=== PATIENT | male | born 1930 | race Caucasian/White ===

== ENCOUNTER 2016-10-12 13:34 | Inpatient (IN) | payer OTHER, MEDICARE ==
[~2016-10-12] VITALS: Ht 167.6 cm; Wt 78.5 kg
--- NOTE | ~2016-10-12 | HC ---
[facility] [place] [address] CONSULTATION Name: NICKIE MESA Room #: 437-P ADM IN M.R.#: [id number] Admission: 10/12/16 Attend Phys: Yovani Fenton MD Discharge: Date of : 29 Report #: [id number] THIS REPORT FOR: //name// CC: Yovani Fenton DATE OF SERVICE: 10/13/2016 Nephrology Consultation REASON FOR CONSULTATION: Chronic kidney disease. HISTORY OF PRESENT ILLNESS: This is an 86-year-old male who is well known to our group. He is followed chronically in the office by Dr. Bahman Ceballos. When the patient was last in the hospital in June 2016, I saw him in consultation at that time. He has chronic kidney disease stage 4. He runs a baseline creatinine around 3 to 3.4. He has had problems with hypertension. He also has problems with edema and volume overload. At other times he has come in being a bit lightheaded and dizzy and may be a bit dry. Usually, he is on some diuretic in the form of torsemide 20 mg daily. He states that 2 days ago, he began getting very short of breath, this is rather acute in onset. It was accompanied by some orthopnea. No chest pain. He has some mild cough. He is unaware of fevers, chills or sweats. On presentation to the Emergency Room, he did have a right basilar infiltrate on chest x-ray. From a kidney standpoint, his creatinine level was 3.1, potassium was 5.6 yesterday, it is down to 5.1 today. PAST MEDICAL HISTORY: Chronic kidney disease stage 4. He has had a previous unilateral nephrectomy on the left side for renal cell carcinoma done in 2007. He has had chronically elevated creatinine since that time. He has longstanding hypertension, usually on multiple different medications. He has some chronic lower extremity edema and again normally he is maintained on the torsemide 20 mg daily. He has hypothyroidism and is on replacement. History of coronary artery disease with bypass graft surgery in 2006, type 2 diabetes mellitus, chronic tremor for which he takes propranolol, some chronic anemia. Previous problems with severe life-threatening hyperkalemia. MEDICATIONS: From home include amlodipine 2.5 mg daily, aspirin 325 mg daily, atorvastatin 20 mg daily, doxazosin 4 mg daily, levothyroxine 0.025 mg daily, ____, torsemide 20 mg daily. ALLERGIES: Listed to DILTIAZEM, BACTRIM. FAMILY HISTORY: Noncontributory. SOCIAL HISTORY: The patient is a , lives in [place], [place] at a local residential apartment. He tends to remain very active. [facility] [address] [place] [address] CONSULTATION Name: NICKEI MESA Room #: 437-P [facility] IN M.R.#: [id number] Admission: 10/12/16 Attend Phys: Yovani Fenton MD Discharge: Date of : 29 Report #: [id number] REVIEW OF SYSTEMS: Again, was feeling somewhat poorly the other day, began having the orthopnea. He was concerned as he felt somewhat weak that he was getting volume deplete again, he stopped his torsemide on his own, he does have some chronic lower extremity edema. He reports no fevers, chills or sweats. No palpitations. Appetite has been moderate. Denies nausea or vomiting, no diarrhea, no fevers, chills or sweats. PHYSICAL EXAMINATION: GENERAL: Elderly appearing male, sitting up in a chair. He is awake, alert and oriented. VITAL SIGNS: Blood pressure 176/56, heart rate 61, temperature 97.7, oxygen saturation 99%, respiratory rate 20. HEENT: Shows pupils are equal and reactive. Sclerae are nonicteric. Oral mucosa is moist. NECK: Veins are not ____, the neck is supple, no adenopathy. CHEST: Shows a few rales with dullness in right base. HEART: Has a regular rate and rhythm. ABDOMEN: Has active bowel sounds, soft, nontender. EXTREMITIES: He has 2+ bilateral ankle edema. Chest x-ray shows a right basilar infiltrate in right lower. LABORATORY DATA: From today, sodium 141, potassium 5.1, chloride 110, bicarbonate 14, BUN 85, creatinine 3.0, glucose 76, calcium 8.2. White count 9.4, hemoglobin 9.2, hematocrit 28.0, platelets 121,000. ASSESSMENT: 1. Chronic kidney disease stage 4: He is about baseline, volume is up a little bit. He needs to be back on his usual diuretics. I see no real change from a renal standpoint. 2. Moderate volume overload, we will get him back on daily torsemide, giving him a dose today and then resuming early tomorrow morning. 3. Right lower lobe infiltrate on broad spectrum antibiotics, currently afebrile, oxygenating fairly well. 4. Remote renal cell carcinoma with unilateral nephrectomy. 5. Coronary artery disease, no symptoms. PLAN: 1. He has been on some IV fluids, but we will stop that. 2. Resume torsemide 20 mg daily starting this afternoon, then resuming tomorrow morning. [facility] [address] [place] [address] CONSULTATION Name: NICKIE MESA Room #: 437-P ADM IN M.R.#: [id number] Admission: 10/12/16 Attend Phys: Yovani Fenton MD Discharge: Date of : 29 Report #: [id number] 3. Repeat labs in the morning. 4. We will follow along the care of this pleasant patient. <ELECTRONICALLY SIGNED> By: Carroll Parmar MD 10/14/16 0921 1454 1602 Carroll Parmar MD /nt
--- NOTE | ~2016-10-12 | 2DMMODE ---
[facility] [place] [address] 2 D/M-MODE ECHOCARDIOGRAM Name: NICKEI MESA Room #: 437-P [facility] IN M.R.#: [id number] Admission: 10/12/16 Attend Phys: Yovani Fenton, Discharge: Date of : 29 Date of Service: 10/16/16 0858 Report #: [id number] THIS REPORT FOR: //name// Transthoracic Echocardiography Ordering physician: Mendoza Ferrari Referring physician: Mendoza Ferrari Loose Hand Packer: JOSE GUADALUPE Jean Indications/History: CHF, DM, HTN. BP: 144 / HR: 60bpm Height: 65in Weight: 172.6lb 61 Study data: M-mode, complete 2D, complete spectral Doppler, and color Doppler. Location: Echo laboratory. Routine. Image quality was good. 2D measurements Normal Normal LVID ED 42mm 36-57 IVS ED 11.3mm 6-11 LVID ES 27.7mm 23-40 LVPW ED 11.7mm 6-11 LA volume 39ml/m2 16-28 AoRoot diam 33mm 21-37 index ED LVOT diameter 21mm 18-23 Findings: Left ventricle: The cavity size was normal. Wall thickness was at the upper limits of normal. Systolic function was normal. The estimated ejection fraction was in the range of 60% to 65%. Wall motion was normal. Right ventricle: The cavity size was normal. Systolic function was normal. Right atrium: The atrium was at the upper limits of normal in size. Left atrium: The atrium was dilated. Volume index: 39ml/m2 (S). Aortic valve: Trileaflet; mildly thickened, mildly calcified leaflets. Doppler: There was no stenosis. [address] [address] 2 D/M-MODE ECHOCARDIOGRAM Name: NICKIE MESA Room #: 437-P ADM IN M.R.#: [id number] Admission: 10/12/16 Attend Phys: Yovani Fenton, Discharge: Date of : 29 Date of Service: 10/16/16 0858 Report #: [id number] Mild regurgitation. Peak velocity: 157.6cm/s (S). Mitral valve: Mildly calcified annulus. Doppler: There was no evidence for stenosis. Mild regurgitation. Peak E-wave velocity: 72.2cm/s. Peak gradient: 2.1mm Hg (D). Peak A-wave velocity: 102cm/s. Tricuspid valve: Structurally normal valve. Doppler: There was no evidence for stenosis. Mild regurgitation. Regurgitant peak velocity: 282.3cm/s. Peak RV-RA gradient: 32mm Hg (S). Pulmonic valve: Structurally normal valve. Doppler: There was no evidence for stenosis. Mild regurgitation. Pericardium: There was no pericardial effusion. Aorta: Aortic root: The aortic root was normal in size. Pulmonary artery: Systolic pressure was estimated to be 37mm Hg. Diastolic function: Doppler parameters are consistent with abnormal left ventricular relaxation (grade 1 diastolic dysfunction). Systemic veins: Inferior vena cava: The vessel was normal in size; the respirophasic diameter changes were in the normal range (= 50%). Conclusions 1. Left ventricle: Systolic function was normal. The estimated ejection fraction was in the range of 60% to 65%. Wall motion was normal. Doppler parameters are consistent with abnormal left ventricular relaxation (grade 1 diastolic dysfunction). 2. Aortic valve: Trileaflet; mildly thickened, mildly calcified leaflets. There was no stenosis. Mild regurgitation. 3. Mitral valve: Mildly calcified annulus. Mild regurgitation. 4. Pulmonary arteries: Systolic pressure was estimated to be 37mm Hg. 5. Pericardium, extracardiac: There was no pericardial effusion. <ELECTRONICALLY SIGNED> By: Carl Tim MD, [facility] 10/16/16 1008 0858 1008 Carl Tim MD, [facility] /antonio
--- NOTE | ~2016-10-12 | EKG ---
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
--- NOTE | ~2016-10-12 | H ---
[facility] [place] [address] [place] [address] HISTORY AND PHYSICAL Name: NICKIE MESA Room #: 437-P ADM IN M.R.#: [id number] Admission: 10/12/16 Attend Phys: Yovani Fenton MD Discharge: Date of : 29 Report #: [id number] THIS REPORT FOR: //name// CC: Yovani Fenton DATE OF SERVICE: 10/12/2016 CHIEF COMPLAINT: Shortness of air. HISTORY OF PRESENT ILLNESS: The patient is an 86-year-old male, who is reportedly more short of air. I saw him in the office yesterday. He was having little bit of shortness of air. They thought he was hydrated. He presented to the ER, feeling worse, unable to lay flat. He denies any cough or fever. PAST MEDICAL HISTORY: Significant for, 1. Chronic kidney disease, last creatinine yesterday was 2.99. 2. Hypertension. 3. Coronary artery disease. 4. Hiatal hernia. 5. Non-insulin dependent diabetes mellitus. PAST SURGICAL HISTORY: Include prior colon perforation, cholecystectomy, exploratory laparotomy, hernia repair, and bypass grafting in 2006, left nephrectomy for cancer in 2007, sphincter of Oddi sphincterotomy, renal cancer. MEDICATIONS: Include aspirin 325 mg a day, amlodipine 2.5 mg a day, atorvastatin 20 mg a day, Synthroid 25 mcg a day, doxazosin 4 mg a day, magnesium 64 mg b.i.d., torsemide 20 mg a day, metoprolol XL 25 mg a day, propranolol 40 mg b.i.d., flaxseed daily, lactobacillus daily, metronidazole 500 mg t.i.d. recently. ALLERGIES: SULFA, CARDIZEM. SOCIAL HISTORY: Occasional alcohol. No recreational drugs. No tobacco. REVIEW OF SYSTEMS: CONSTITUTIONAL: Feels dizzy, weak, and lightheaded, not aware of any fevers. HEENT: No headaches or visual changes. CHEST: Shortness of air, little bit of cough, no sputum production. GASTROINTESTINAL: No nausea, vomiting, diarrhea, or constipation. GENITOURINARY: No burning or frequency. EXTREMITIES: No new joint pains. SKIN: No new rashes or wounds. PHYSICAL EXAMINATION: VITAL SIGNS: Blood pressure of 142/45, pulse of 62, respiratory rate 20. He is [address] [address] HISTORY AND PHYSICAL Name: NICKIE MESA MARILYN Room #: 437-[facility] IN M.R.#: [id number] Admission: 10/12/16 Attend Phys: Yovani Fenton MD Discharge: Date of : 29 Report #: [id number] afebrile. GENERAL: The patient is awake, alert, and in no acute distress. HEENT: His mucous membranes are moist. NECK: Supple, without adenopathy, thyromegaly, or bruits. CHEST: Clear to auscultation anteriorly, but there are decreased breath sounds in the bases. CARDIOVASCULAR: Regular rhythm without murmurs. ABDOMEN: Soft, no masses. Bowel sounds are active. EXTREMITIES: Showed no edema. Pulses are intact. DIAGNOSTIC DATA: EKG showed sinus rhythm at rate of 55. No ST segment changes. LABORATORY DATA: Sodium 135, potassium 5.6, chloride 106, BUN 84, creatinine 3.1. This is similar to his yesterday's numbers. Lactic acid is 0.7. Troponin is less than 0.04. BNP is 4703. WBC is 9.4, hemoglobin 9.2, hematocrit 28.0, platelet count 121, 73 segs, 10 lymphs. Chest x-ray shows early heart failure with some pulmonary edema versus a right lower lung infiltrate. ASSESSMENT: 1. Pneumonia, community acquired. 2. Acute kidney injury with chronic kidney disease. 3. Congestive heart failure. PLAN: We will admit, start on IV antibiotics for pneumonia. We will ask renal to see him in light of his prior chronic kidney disease, and ask cardiology to see him regarding the heart failure. <ELECTRONICALLY SIGNED> By: Yovani Fenton MD 10/15/16 1250 1524 1659 Yovani Fenton MD /nt
--- NOTE | ~2016-10-12 | HC ---
[facility] [place] [address] CONSULTATION Name: NICKIE MESA Room #: 437-P [facility] IN M.R.#: [id number] Admission: 10/12/16 Attend Phys: Yovani Fenton MD Discharge: 10/16/16 Date of : 29 Report #: [id number] THIS REPORT FOR: //name// CC: Yovani Fenton REASON FOR CONSULTATION: CHF. HISTORY OF PRESENT ILLNESS: The patient is an 86-year-old male with history of coronary artery disease status post CABG, chronic renal insufficiency, hypertension and diabetes who presents with increasing exertional dyspnea as well as PND or orthopnea. He denies any problems with chest pain or chest tightness. He was found to have some pulmonary edema on chest x-ray, was diuresed and is feeling better. PAST MEDICAL HISTORY: 1. Coronary artery disease, status post CABG. 2. Diabetes. 3. Hypertension. 4. Chronic renal insufficiency. 5. Renal cell carcinoma status post nephrectomy. 6. Carotid endarterectomy in 2009. SOCIAL HISTORY: Does not smoke. FAMILY HISTORY: Noncontributory. ALLERGIES: Include DILTIAZEM and SULFA. HOME MEDICATIONS: Include aspirin 325, amlodipine 2.5, atorvastatin 20 mg a day, Synthroid 25 mcg a day, doxazosin 5 mg a day, magnesium, torsemide 20 a day, metoprolol 25 mg a day, propranolol 40 b.i.d., flaxseed oil, lactobacillus, and metronidazole. REVIEW OF SYSTEMS: Twelve point review of systems was performed and negative other than what I mentioned above. PHYSICAL EXAMINATION: VITAL SIGNS: Temperature is 36.5, pulse 61, respirations 20, blood pressure 176/56, and sats are 99%. GENERAL: He is in no acute distress, sitting up in the chair. HEENT: Oropharynx is clear. NECK: Supple with no thyromegaly. HEART: Regular rate and rhythm with no murmurs, rubs, or gallops. He has slightly elevated jugular venous pressure. LUNGS: Some mild crackles at the bases. ABDOMEN: Soft, nontender, and nondistended with no hepatosplenomegaly. EXTREMITIES: There is no clubbing, cyanosis, or edema. [facility] [address] [place] [address] CONSULTATION Name: NICKIE MESA Room #: 437-P [facility] IN M.R.#: [id number] Admission: 10/12/16 Attend Phys: Yovani Fenton MD Discharge: 10/16/16 Date of : 29 Report #: [id number] NEUROLOGIC: Cranial nerves 2-12 are intact. LABORATORY DATA: Sodium is 141, potassium 5.1, and creatinine is 3.0. White count 9.4, hemoglobin 9.2, and platelets 121. Troponin was negative. ProBNP is 4703. His chest x-ray I compared it to prior and shows that he has increased cephalization, increased interstitial lung markings consistent with congestive heart failure. There are no recent echos in the computer. His EKG shows sinus rhythm with no ischemic changes. ASSESSMENT AND PLAN: In summary, the patient is an 86-year-old with known coronary artery disease status post coronary artery bypass graft, presenting with worsening shortness of breath, found to be in acute heart failure, most likely diastolic in nature. To further evaluate this, I would recommend that we order an echocardiogram on Saturday and we will continue to optimize his medications. We will continue to follow. <ELECTRONICALLY SIGNED> By: Mendoza Ferrari MD 10/19/16 1224 1449 1604 Mendoza Ferrari MD /nt
[2016-10-12 13:34] VITALS: BP 142/45
[~2016-10-12 13:34] MED LIST: AMBIEN 5 MG TABL5 M1 PO; AMBIEN CR12.5 MG PO; ASPIRIN325 PO; CARDURA8 MG PO; CEFDINIR300 MG PO; DEMADEX10 MG PO; DOXYCYCLINE; FLAX OIL1000 MG PO; FLOMAX PO; GILPIZIDE PO; LEVOTHYROXIN0.025 MG PO; LIPITOR 20 MG T20 M1 PO; NEXIUM40 MG PO; NORVASC2.5 MG PO; PLAVIX 75 MG TA75 MG OR; PROPRANOLOL 4040 M1 PO; PROPRANOLOL PO; REFRESH OPTIVE10 ML OPHTHALMIC; VYTORIN 10-401 EACH PO; VYTORIN PO
[2016-10-12 13:59] LABS: ABSOLUTE NEUTROPHILS 7.1 thou/uL (1.4-8.2); BASOPHILS 0.5 % (0.0-2.0); EOSINOPHILS 2.2 % (0.0-3.0); HEMOGLOBIN 9.2 gm/dL (14.0-18.0); LYMPHOCYTES 10.6 % (24.0-44.0); MCH 28.7 pg (26.0-34.0); MCHC 32.8 % (28.0-37.0); MCV 87.7 fL (80.0-100.0); MONOCYTES 11.4 % (1.0-8.0); PLATELET COUNT 121 thou/uL (150-400); POLYS 75.3 % (36.0-66.0); RBC 3.19 mil/uL (4.50-6.00); RDW 15.4 % (10.5-14.5); WBC 9.4 thou/uL (4.0-11.0)
[2016-10-12 14:05] LABS: MANUAL DIFF NO
[2016-10-12 14:13] LABS: ANION GAP 12 mmol/L (7-16); BUN 84 mg/dL (7-18); CALCIUM 8.3 mg/dL (8.5-10.1); CHLORIDE 106 mmol/L (98-107); CO2 17 mmol/L (21-32); CREATININE 3.1 mg/dL (0.6-1.3); GLUCOSE 158 mg/dL (70-99); POTASSIUM 5.6 mmol/L (3.5-5.1); SODIUM 135 mmol/L (136-145)
[2016-10-12 14:27] LABS: NT-PRO BRAIN NAT PEPTIDE 4703 pg/mL (<300); TROPONIN-I < 0.04 ng/mL (<0.04-0.07)
[2016-10-12] MEDS ORDERED: CARDURA4 MG PO (14:30)
[2016-10-12] MEDS ORDERED: SLOW-MAG64 M1 PO (14:30)
[2016-10-12] MEDS ORDERED: DEMADEX20 MG PO (14:31)
[2016-10-12] MEDS ORDERED: TOPROL XL25 MG PO (14:31)
[2016-10-12] MEDS ORDERED: PROPRANOLOL 4040 M1 PO (14:32)
[2016-10-12] MEDS ORDERED: PROBIOTIC1 EAC1 PO (14:33)
[2016-10-12] MEDS ORDERED: FLAX SEED OIL1000 MG PO (14:33)
[2016-10-12] MEDS ORDERED: FLAGYL500 MG PO (14:34)
[2016-10-12 16:44] VITALS: BP 151/81
[2016-10-12 20:00] VITALS: BP 150/45
[2016-10-13 04:00] VITALS: BP 166/51
[2016-10-13 06:07] LABS: CALCIUM 8.2 mg/dL (8.5-10.1); POTASSIUM 5.1 mmol/L (3.5-5.1)
[2016-10-13 08:00] VITALS: BP 176/56
[2016-10-13 16:00] VITALS: BP 146/49
[2016-10-13 19:28] VITALS: BP 147/51
[2016-10-14 04:04] VITALS: BP 165/42
[2016-10-14 05:42] LABS: CALCIUM 8.3 mg/dL (8.5-10.1); CREATININE 2.9 mg/dL (0.6-1.3); POTASSIUM 5.1 mmol/L (3.5-5.1)
[2016-10-14 08:00] VITALS: BP 181/57
[2016-10-14 12:00] VITALS: BP 137/52
[2016-10-14 16:00] VITALS: BP 145/55
[2016-10-14 21:24] VITALS: BP 148/57
[2016-10-15 05:44] LABS: CALCIUM 8.2 mg/dL (8.5-10.1); CREATININE 3.1 mg/dL (0.6-1.3); POTASSIUM 4.6 mmol/L (3.5-5.1)
[2016-10-15 06:06] VITALS: BP 177/55
[2016-10-15 08:00] VITALS: BP 165/60
[2016-10-15 10:26] VITALS: BP 165/60
[2016-10-15 12:00] VITALS: BP 160/60
[2016-10-15 16:00] VITALS: BP 139/57
[2016-10-15 19:17] VITALS: BP 170/63
[2016-10-16 04:37] VITALS: BP 169/60
[2016-10-16 06:00] LABS: ALBUMIN 3.1 g/dL (3.4-5.0); CALCIUM 8.1 mg/dL (8.5-10.1); CREATININE 2.8 mg/dL (0.6-1.3); PHOSPHORUS 6.1 mg/dL (2.5-4.9); POTASSIUM 4.6 mmol/L (3.5-5.1)
[2016-10-16 07:30] VITALS: BP 144/61
[2016-10-16 11:56] VITALS: BP 152/52
[2016-10-16] MEDS ORDERED: CEFDINIR300 MG PO (12:35)
[2016-10-16 13:38] VITALS: BP 152/52
== END 2016-10-16 14:25 | disposition home or self-care (01) | DRG 871 ==
LOC: ER 13:34 → EROBS 14:56 → 4S 14:56
PROVIDERS: Emergency Medicine; Family Medicine; Internal Medicine Nephrology
DX: A41.9 Sepsis, unspecified organism (principal); I50.33 Acute on chronic diastolic (congestive) heart failure; J18.9 Pneumonia, unspecified organism; N17.9 Acute kidney failure, unspecified; I13.0 Hypertensive heart and chronic kidney disease with heart failure and stage 1 through stage 4 chronic kidney disease, or unspecified chronic kidney disease; N18.4 Chronic kidney disease, stage 4 (severe); I25.10 Atherosclerotic heart disease of native coronary artery without angina pectoris; E11.9 Type 2 diabetes mellitus without complications; Z88.8 Allergy status to other drugs, medicaments and biological substances; Z88.2 Allergy status to sulfonamides; Z95.1 Presence of aortocoronary bypass graft; Z90.49 Acquired absence of other specified parts of digestive tract; Z85.528 Personal history of other malignant neoplasm of kidney; Z79.899 Other long term (current) drug therapy; Z79.82 Long term (current) use of aspirin; Z90.5 Acquired absence of kidney; Z98.890 Other specified postprocedural states
CPT/HCPCS: 10100

== ENCOUNTER 2016-10-17 22:00 | Inpatient (IN) | payer OTHER, MEDICARE ==
[~2016-10-17] VITALS: Ht 167.6 cm; Wt 72.9 kg
--- NOTE | ~2016-10-17 | H ---
[facility] [place] [address] HISTORY AND PHYSICAL Name: NICKIE MESA Room #: 429-P [facility] IN M.R.#: [id number] Admission: 10/18/16 Attend Phys: Yovani Fenton MD Discharge: 10/19/16 Date of : 29 Report #: [id number] THIS REPORT FOR: //name// CC: Yovani Fenton DATE OF SERVICE: 10/18/2016 CHIEF COMPLAINT: Falls. HISTORY OF PRESENT ILLNESS: The patient is an 86-year-old male who had just been discharged after having a little bit of acute kidney injury, dehydration and some diarrhea. He had gone home and he started developing weakness and loose bowels. He continued to have some diarrhea and felt weak. He has had pneumonia recently. He does not feel short of breath at this time. PAST MEDICAL HISTORY: His past history is significant for: 1. Recent pneumonia. 2. Recent JUSTA with CKD. 3. Hypertension. 4. Prior colon resection. 5. Coronary artery disease with bypass grafting. MEDICATIONS: Aspirin 325 mg a day, Norvasc 2.5 mg a day, atorvastatin 20 mg a day, levothyroxine 25 mcg a day, doxazosin 4 mg a day, Slow-Mag 64 mg b.i.d., torsemide 20 mg a day, propranolol 40 mg b.i.d. and lactobacillus. ALLERGIES: SULFA and DILTIAZEM. SOCIAL HISTORY: Nonsmoker, nondrinker. No recreational drugs. Lives independently. He is . REVIEW OF SYSTEMS: CONSTITUTIONAL: No fevers or chills. NECK: No neck pain. CHEST: No tightness in the chest, shortness of breath, cough or sputum production. GASTROINTESTINAL: As above, the diarrhea. No vomiting. GENITOURINARY: No burning or frequency. EXTREMITIES: No new joint complaints. PHYSICAL EXAMINATION: VITAL SIGNS: In the ER, blood pressure 178/42, pulse is 69 and respiratory rate is 20. He is afebrile. GENERAL: He is awake and alert, in no acute distress, but he does feel weak. HEENT: His mucous membranes are dry. NECK: Supple, without adenopathy, thyromegaly or bruits. [facility] [address] [place] [address] HISTORY AND PHYSICAL Name: NICKIE MESA Room #: 429-P [facility] IN .R.#: [id number] Admission: 10/18/16 Attend Phys: Yovani Fenton MD Discharge: 10/19/16 Date of : 29 Report #: [id number] CHEST: Clear to auscultation. CARDIOVASCULAR: Regular rate and rhythm, without murmur. ABDOMEN: Soft. No masses. Bowel sounds are active. EXTREMITIES: Show normal pulses, trace edema. SKIN: Intact. No wounds. LABORATORY DATA: EKG showed normal sinus rhythm, rate of 64. No ST-segment changes. Sodium 139, potassium 5.0, chloride 104, bicarbonate 25, BUN 39, creatinine 3.3 and glucose 115. Lactic acid is 1.1. Calcium 8.3. AST 11, ALT 21 and alkaline phosphatase 91. CK 106. Troponin less than 0.04. BNP 1217. Albumin 3.5. WBCs are 6.8, hemoglobin is 8.7, hematocrit 26.4, platelet count is 108,000, segs 64 and lymphs 20. Chest x-ray shows no acute process. CT scan of the head shows atrophy with chronic small vessel disease, no acute intracranial process. ASSESSMENT: 1. Generalized weakness with multiple falls. 2. Chronic kidney disease with mild acute kidney injury today. 3. Anemia. PLAN: Admit. He has been seen by renal. We will do general hydration, give some Imodium for his diarrhea and will work towards rehab facility. He certainly can go in the next day or two as otherwise he seems stable, pending followup on his lab. <ELECTRONICALLY SIGNED> By: Yovani Fenton MD 10/27/16 0725 1233 1347 Yovani Fenton MD /nt
--- NOTE | ~2016-10-17 | EKG ---
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
[~2016-10-17 22:00] MED LIST changes: +CARDURA4 MG PO; +DEMADEX20 MG PO; +FLAGYL500 MG PO; +FLAX SEED OIL1000 MG PO; +PROBIOTIC1 EAC1 PO; +SLOW-MAG64 M1 PO; +TOPROL XL25 MG PO
[2016-10-17 22:01] VITALS: BP 178/42
[2016-10-17 22:32] LABS: ABSOLUTE NEUTROPHILS 4.3 thou/uL (1.4-8.2); BASOPHILS 0.6 % (0.0-2.0); HEMATOCRIT 26.4 % (42.0-52.0); HEMOGLOBIN 8.7 gm/dL (14.0-18.0); LYMPHOCYTES 20.5 % (24.0-44.0); MCH 28.6 pg (26.0-34.0); MCHC 33.1 % (28.0-37.0); MCV 86.2 fL (80.0-100.0); MONOCYTES 10.8 % (1.0-8.0); PLATELET COUNT 108 thou/uL (150-400); POLYS 64.1 % (36.0-66.0); RBC 3.06 mil/uL (4.50-6.00); RDW 15.2 % (10.5-14.5); WBC 6.8 thou/uL (4.0-11.0)
[2016-10-17 22:35] LABS: ANION GAP 10 mmol/L (7-16); BUN 79 mg/dL (7-18); CALCIUM 8.3 mg/dL (8.5-10.1); CHLORIDE 104 mmol/L (98-107); CO2 25 mmol/L (21-32); CREATININE 3.3 mg/dL (0.6-1.3); GLUCOSE 115 mg/dL (70-99); SODIUM 139 mmol/L (136-145)
[2016-10-17 22:38] LABS: MANUAL DIFF NO
[2016-10-17 22:48] LABS: ALBUMIN 3.5 g/dL (3.4-5.0); ALKALINE PHOSPHATASE 91 U/L (46-116); NT-PRO BRAIN NAT PEPTIDE 1217 pg/mL (<300); SGOT 11 U/L (15-37); SGPT 21 U/L (30-65); TOTAL BILIRUBIN 0.4 mg/dL (<0.1-1.0); TOTAL PROTEIN 6.4 g/dL (6.4-8.2); TROPONIN-I < 0.04 ng/mL (<0.04-0.07)
[2016-10-18 00:41] VITALS: BP 142/37
[2016-10-18 01:17] VITALS: BP 177/66
[2016-10-18 04:30] VITALS: BP 162/65
[2016-10-18 07:23] VITALS: BP 153/64
[2016-10-18 15:40] VITALS: BP 156/47
[2016-10-18 18:06] LABS: % SATURATION 21 % (15-55); IRON 51 ug/dL (38-169); TIBC 239 ug/dL (250-450); UIBC 188 ug/dL (111-343)
[2016-10-18 20:00] VITALS: BP 182/62
[2016-10-19 04:00] VITALS: BP 170/52
[2016-10-19 05:18] LABS: MCH 28.1 pg (26.0-34.0); MCHC 32.1 % (28.0-37.0); MCV 87.7 fL (80.0-100.0); RBC 2.85 mil/uL (4.50-6.00); WBC 5.8 thou/uL (4.0-11.0)
[2016-10-19 05:20] VITALS: BP 162/78
[2016-10-19 05:37] LABS: ALBUMIN 2.9 g/dL (3.4-5.0); CREATININE 2.9 mg/dL (0.6-1.3); MAGNESIUM 1.8 mg/dL (1.8-2.4); PHOSPHORUS 5.8 mg/dL (2.5-4.9)
[2016-10-19 08:44] VITALS: BP 164/48
== END 2016-10-19 14:34 | DRG 682 ==
LOC: ER 22:00 → 4E 10-18 00:13 → EROBS 10-18 00:13 → 4E 10-18 00:49
PROVIDERS: Emergency Medicine; Internal Medicine Nephrology
DX: N17.9 Acute kidney failure, unspecified (principal); I50.23 Acute on chronic systolic (congestive) heart failure; I13.0 Hypertensive heart and chronic kidney disease with heart failure and stage 1 through stage 4 chronic kidney disease, or unspecified chronic kidney disease; N18.4 Chronic kidney disease, stage 4 (severe); S09.90XA Unspecified injury of head, initial encounter; R19.7 Diarrhea, unspecified; D64.9 Anemia, unspecified; E86.0 Dehydration; I25.10 Atherosclerotic heart disease of native coronary artery without angina pectoris; Z95.1 Presence of aortocoronary bypass graft; Z87.01 Personal history of pneumonia (recurrent); Z79.899 Other long term (current) drug therapy; Z79.82 Long term (current) use of aspirin; Z88.2 Allergy status to sulfonamides; Z88.8 Allergy status to other drugs, medicaments and biological substances; Z79.2 Long term (current) use of antibiotics; W19.XXXA Unspecified fall, initial encounter; Y93.89 Activity, other specified; Y92.89 Other specified places as the place of occurrence of the external cause; Y99.8 Other external cause status; Z90.49 Acquired absence of other specified parts of digestive tract
CPT/HCPCS: 10783

== ENCOUNTER 2017-01-31 11:48 | Emergency (ER) | payer OTHER, MEDICARE ==
[~2017-01-31] VITALS: Ht 167.6 cm; Wt 72.6 kg
[2017-01-31 12:11] VITALS: BP 156/76
== END 2017-01-31 13:13 | disposition home or self-care (01) ==
LOC: ER 11:48
DX: L29.9 Pruritus, unspecified (principal); E11.22 Type 2 diabetes mellitus with diabetic chronic kidney disease; I12.9 Hypertensive chronic kidney disease with stage 1 through stage 4 chronic kidney disease, or unspecified chronic kidney disease; N18.9 Chronic kidney disease, unspecified; Z90.49 Acquired absence of other specified parts of digestive tract; Z88.1 Allergy status to other antibiotic agents; Z88.8 Allergy status to other drugs, medicaments and biological substances; Z87.891 Personal history of nicotine dependence

== ENCOUNTER 2017-03-30 11:58 | Emergency (ER) | payer OTHER, MEDICARE ==
[~2017-03-30] VITALS: Ht 165.1 cm; Wt 72.6 kg
[2017-03-30] MEDS ORDERED: GABAPENTIN 100100 MG PO (13:41)
[2017-03-30] MEDS ORDERED: ULTRAM 50MG TAB50 MG PO (14:16)
[2017-03-30] MEDS ORDERED: NAPROSYN500 MG PO (14:16)
[2017-03-30 14:53] VITALS: BP 176/56
== END 2017-03-30 14:53 | disposition home or self-care (01) ==
LOC: ER 11:58
DX: M79.672 Pain in left foot (principal); I12.9 Hypertensive chronic kidney disease with stage 1 through stage 4 chronic kidney disease, or unspecified chronic kidney disease; E11.22 Type 2 diabetes mellitus with diabetic chronic kidney disease; N18.9 Chronic kidney disease, unspecified; Z98.890 Other specified postprocedural states; F10.99 Alcohol use, unspecified with unspecified alcohol-induced disorder; Z79.82 Long term (current) use of aspirin; Z88.1 Allergy status to other antibiotic agents; Z88.8 Allergy status to other drugs, medicaments and biological substances; Z87.891 Personal history of nicotine dependence

== ENCOUNTER 2017-06-19 16:15 | Emergency (ER) | payer OTHER, MEDICARE ==
[~2017-06-19] VITALS: Ht 167.6 cm; Wt 72.6 kg
--- NOTE | ~2017-06-19 | EKG ---
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
[~2017-06-19 16:15] MED LIST changes: +GABAPENTIN 100100 MG PO; +NAPROSYN500 MG PO; +ULTRAM 50MG TAB50 MG PO
[2017-06-19 16:49] LABS: ABSOLUTE NEUTROPHILS 3.8 thou/uL (1.4-8.2); BASOPHILS 0.4 % (0.0-2.0); EOSINOPHILS 3.1 % (0.0-3.0); HEMATOCRIT 30.6 % (42.0-52.0); HEMOGLOBIN 10.5 gm/dL (14.0-18.0); LYMPHOCYTES 23.5 % (24.0-44.0); MCH 28.5 pg (26.0-34.0); MCHC 34.3 g/dL (28.0-37.0); MONOCYTES 11.4 % (1.0-8.0); PLATELET COUNT 112 thou/uL (150-400); POLYS 61.6 % (36.0-66.0); RBC 3.69 mil/uL (4.50-6.00); RDW 14.7 % (10.5-14.5); WBC 6.1 thou/uL (4.0-11.0)
[2017-06-19 16:50] LABS: MANUAL DIFF NO
[2017-06-19 16:57] LABS: ANION GAP 10 mmol/L (7-16); BUN 69 mg/dL (7-18); CHLORIDE 95 mmol/L (98-107); CO2 17 mmol/L (21-32); GLUCOSE 101 mg/dL (74-106); POTASSIUM 5.8 mmol/L (3.5-5.1); SODIUM 122 mmol/L (136-145)
[2017-06-19 17:03] LABS: INR 1.1
[2017-06-19 17:04] LABS: ALBUMIN 3.4 g/dL (3.4-5.0); ALKALINE PHOSPHATASE 128 U/L (46-116); SGOT 18 U/L (15-37); SGPT 11 U/L (30-65); TOTAL BILIRUBIN 0.5 mg/dL (<0.1-1.0); TOTAL PROTEIN 5.9 g/dL (6.4-8.2); TROPONIN-I < 0.04 ng/mL (<0.04-0.07)
[2017-06-19 20:20] LABS: CALCIUM 8.5 mg/dL (8.5-10.1); CREATININE 3.1 mg/dL (0.7-1.3)
[2017-06-19 21:28] VITALS: BP 188/70
== END 2017-06-19 21:32 | disposition home or self-care (01) ==
LOC: ER 16:15
PROVIDERS: Physician Assistant
DX: E11.22 Type 2 diabetes mellitus with diabetic chronic kidney disease (principal); I12.9 Hypertensive chronic kidney disease with stage 1 through stage 4 chronic kidney disease, or unspecified chronic kidney disease; D50.0 Iron deficiency anemia secondary to blood loss (chronic); N18.9 Chronic kidney disease, unspecified; E87.1 Hypo-osmolality and hyponatremia; E86.0 Dehydration; E87.6 Hypokalemia; F10.99 Alcohol use, unspecified with unspecified alcohol-induced disorder; Z88.2 Allergy status to sulfonamides; Z88.1 Allergy status to other antibiotic agents; Z88.8 Allergy status to other drugs, medicaments and biological substances; Z87.891 Personal history of nicotine dependence

== ENCOUNTER 2017-09-20 06:52 | Inpatient (IN) | payer OTHER, MEDICARE ==
[~2017-09-20] VITALS: Ht 165.1 cm; Wt 81.7 kg
--- NOTE | ~2017-09-20 | HC ---
[facility] [place] [address] CONSULTATION Name: NICKIE MESA Room #: 417-I [facility] IN M.R.#: [id number] Admission: 09/20/17 Attend Phys: Yovani Fenton MD Discharge: 09/25/17 Date of : 28 Report #: [id number] THIS REPORT FOR: //name// CC: Mendoza Fenton MD DATE OF SERVICE: 09/21/2017 PULMONARY CONSULTATION REFERRING PROVIDER: Yovani Fenton MD REASON FOR CONSULTATION: Pneumonia. CHIEF COMPLAINT: Shortness of breath. HISTORY OF PRESENT ILLNESS: Our group was asked to evaluate this patient in consultation while hospitalized at [facility], a pleasant 87-year-old male without any past pulmonary history who presented to the Emergency Department yesterday morning with complaints of shortness of breath. The patient states he had been having some cough, no significant sputum production, also been noting some wheezing. No fevers or chills. Notes some weakness and dizziness on movement. On initial presentation, he was thought perhaps to have some mild congestive heart failure, was also noted to have some worsening renal insufficiency. However, chest radiographs have shown subsequent increase in pulmonary infiltrates and bilateral bases consistent with pneumonia. The patient has been on Rocephin and azithromycin since admission as well as p.r.n. aerosol treatments, which he thinks has been helping his overall symptoms. ALLERGIES: INCLUDE DILTIAZEM, SULFA. PAST MEDICAL HISTORY: 1. Remote history of tobacco use. 2. History of chronic renal insufficiency. 3. History of coronary artery disease, status post coronary artery bypass grafting. 4. Prior hemicolectomy. 5. Hypertension. 6. Diabetes mellitus type 2. 7. Benign essential tremor. OUTPATIENT MEDICATIONS: Include amlodipine, atorvastatin, aspirin, Synthroid, Cardura, propranolol, probiotic, gabapentin and torsemide. [facility] [address] [place] [address] CONSULTATION Name: NICKIE MESA Room #: 417-I DIS IN [facility].#: [id number] Admission: 09/20/17 Attend Phys: Yovani Fenton MD Discharge: 09/25/17 Date of : 29 Report #: [id number] SOCIAL HISTORY: Remote tobacco use. 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 Currently lives independently in [facility]. Occasional alcohol consumption. FAMILY HISTORY: Noncontributory due to his advanced age. REVIEW OF SYSTEMS: CONSTITUTIONAL: Just some general malaise. No fever or chills. ENT: No upper respiratory congestion. GASTROINTESTINAL: May have some initiation of dysphagia. CARDIOVASCULAR: Known coronary disease, no chest pains or palpitations or increased lower extremity edema. GASTROINTESTINAL: As described. GENITOURINARY: No dysuria, no frequency. INTEGUMENT: Denies any new rash. MUSCULOSKELETAL: No new joint pains or swelling. Just some generalized weakness. PHYSICAL EXAMINATION: VITAL SIGNS: Afebrile, pulse 60s, respiratory rate 16, blood pressure 163/50, oxygen saturation 95% on room air. GENERAL: This is a pleasant elderly male, in no distress. ENT: Clear oropharynx. Mallampati 1 airway, no thrush. NECK: Supple, no lymphadenopathy or stridor. LUNGS: Diminished basilar inspiratory crackles, right greater than left with expiratory wheezes noted throughout. CARDIOVASCULAR: Heart regular. No murmurs could be appreciated. ABDOMEN: Soft, nontender, no masses. EXTREMITIES: Warm, 2+ pulses, only trace edema. LABORATORY DATA: White blood cell count 6000, hemoglobin 8, hematocrit 25, platelet count 106. Sodium 138, potassium 4.8, chloride 106, bicarbonate 22, BUN 113, creatinine 4.7, glucose 90. X-rays described in HPI. IMPRESSION: 1. Community-acquired pneumonia, would also be concerned about possible aspiration secondary to dysphagia. 2. Bronchospasm secondary to the above. 3. Acute on chronic renal failure. 4. Anemia. 5. Diabetes mellitus type 2. 6. Mild pulmonary hypertension, doubt this is a contributing factor to his current process. SUGGEST: [address] [address] CONSULTATION Name: NICKIE MESA Room #: 417-I [facility] IN [facility].#: [id number] Admission: 09/20/17 Attend Phys: Yovani Fenton MD Discharge: 09/25/17 Date of : 29 Report #: [id number] 1. Add systemic steroids. 2. Continue with bronchodilators. 3. Check nasal swab for rapid flu and respiratory viral panel. 4. Urinary pneumococcal and legionella antigen test. 5. Sputum cultures. 6. I add flutter valve to assist with airway clearance as well as guaifenesin. 7. We will continue to follow while hospitalized. Follow up chest radiograph in a.m. <ELECTRONICALLY SIGNED> By: Joe Mckeon MD 09/27/17 1726 1407 0054 Joe Mckeon MD /nt
--- NOTE | ~2017-09-20 | HC ---
[facility] [place] [address] CONSULTATION Name: NICKIE MESA Room #: 417-I [facility] IN M.R.#: [id number] Admission: 09/20/17 Attend Phys: Yovani Fenton MD Discharge: 09/25/17 Date of : 29 Report #: [id number] THIS REPORT FOR: //name// CC: Yovani Fentno DATE OF SERVICE: 09/20/2017 REASON FOR CONSULTATION: Shortness of breath. HISTORY OF PRESENT ILLNESS: The patient is an 87-year-old with history of coronary artery disease status post CABG with some history of diastolic heart failure, chronic renal insufficiency with a baseline creatinine of 2, diabetes, hypertension, and renal cell carcinoma status post nephrectomy as well as carotid endarterectomy. I saw the patient once in September when he presented with what appeared to be some diastolic heart failure. His echo on 10/16/2016 showed an EF of 60-65%. He has done well. The patient reports that he has been noncompliant with his diet and has been eating whatever he has wanted. The patient reports he has been having increased shortness of breath and decided to come here for worsening dyspnea. He denies any chest pain or chest tightness. He denies PND or orthopnea. He denies presyncope or syncope. REVIEW OF SYSTEMS: GENERAL: No fevers or chills. HEENT: No blurred vision. CARDIOVASCULAR: As above. PULMONARY: No productive cough. He has had some audible wheezes per his report. GASTROINTESTINAL: No nausea, vomiting. GENITOURINARY: No dysuria. MUSCULOSKELETAL: No myalgias or arthralgias. ENDOCRINE: No heat or cold intolerance. NEUROLOGIC: No focal weakness or stroke-like symptoms. PAST MEDICAL HISTORY: As per above. SOCIAL HISTORY: Quit smoking. FAMILY HISTORY: Noncontributory. ALLERGIES: INCLUDE SULFA DRUG. MEDICATIONS: Include aspirin, amlodipine, Synthroid, doxazosin, magnesium, propranolol, torsemide, and gabapentin. PHYSICAL EXAMINATION: VITAL SIGNS: Temperature is 36.4, pulse 58, respiration 18, blood pressure [address] [address] CONSULTATION Name: BONITANICKIE MARILYN Room #: 417-I [facility] IN ..#: [id number] Admission: 09/20/17 Attend Phys: Yovani Fenton MD Discharge: 09/25/17 Date of : 29 Report #: [id number] 163/40, sats 98%. GENERAL: He is in no acute distress. HEENT: Oropharynx is clear. NECK: Supple, no thyromegaly. HEART: Regular rate and rhythm with no murmurs, rubs, gallops. He does have mildly elevated jugular venous pressure at 45 degree angle. LUNGS: Have some mild bibasilar crackles. ABDOMEN: Soft, nontender, nondistended. EXTREMITIES: There is trace to 1+ lower extremity edema. NEUROLOGICAL: Cranial nerves 2-12 are intact. LABORATORY DATA: White count 5.6, hemoglobin 8.2, platelets 106. Sodium 137, potassium 5.0, BUN 120, creatinine 5.0. Troponin is negative. ProBNP is slightly elevated at 2475. His EKG shows no acute process with no ischemic changes. Telemetry shows no ischemic changes. His echocardiogram shows an EF of 65-70%. There is some pulmonary hypertension at 50 mmHg. There are no significant valvular abnormalities. Telemetry shows no significant arrhythmias. ASSESSMENT AND PLAN: 1. Shortness of breath. 2. Coronary artery disease. 3. History of diastolic dysfunction. 4. Acute on chronic renal insufficiency. 5. Diabetes. 6. Hypertension. In summary, the patient is an 87-year-old presenting with worsening shortness of breath. It does not appear that the patient is in severe congestive heart failure. He has some slight lower extremity edema, and some mild elevated JVD, which may be related to his renal insufficiency and holding on to some fluids. At this time, he likely needs some diuresis, but I will defer this to renal given his worsening renal insufficiency. Fortunately, his EF appears to be preserved. He has no evidence of ischemia on EKG nor an elevated troponin. I do not think that an ischemic evaluation is warranted at this time. We recommend optimizing his pulmonary status and we will continue to follow. <ELECTRONICALLY SIGNED> By: Mendoza Ferrari MD 09/30/17 1308 1218 0122 Mendoza Ferrari MD /nt
--- NOTE | ~2017-09-20 | HC ---
[facility] [place] [address] CONSULTATION Name: NICKIE MESA Room #: 417-I [facility] IN M.R.#: [id number] Admission: 09/20/17 Attend Phys: Yovani Fenton MD Discharge: 09/25/17 Date of : 29 Report #: [id number] THIS REPORT FOR: //name// CC: Yovani Fenton DATE OF SERVICE: 09/20/2017 ATTENDING PHYSICIAN: Yovani Fenton M.D. REASON FOR CONSULTATION: Acute and chronic kidney disease. HISTORY OF PRESENT ILLNESS: The patient is well known to our service, followed chronically with CKD stage 4, creatinine 3.5 and anemia on Procrit. The patient over the last several days has developed progressive increasing shortness of breath with cough. This worsened. He came to the Emergency Room, was found to have patchy infiltrates on chest x-ray and admitted, creatinine was up to 5. No recent medication changes. No chest pain per se. Ankles have not been swelling. Nothing else is new. PAST MEDICAL HISTORY: Rather extensive. The patient has been followed for some time by our service. He had a nephrectomy for renal cell cancer remotely. He has had previous coronary bypass, hypertension, diabetes, chronic kidney disease as mentioned. He has had some difficulty with hyperkalemia at times. He has got a chronic tremor and he is on propranolol. HOME MEDICATIONS: Include torsemide 20 mg daily, doxazosin 4 mg daily, amlodipine 2.5 mg daily, aspirin 325 mg daily, atorvastatin 20 mg daily, gabapentin 300 mg at bedtime, levothyroxine 0.025 mg daily, Slow-Mag 64 mg b.i.d., propranolol 40 mg b.i.d., torsemide 20 mg daily. FAMILY HISTORY: Please see old charts. SOCIAL HISTORY: No cigarettes or alcohol. Lives at home by himself. PHYSICAL EXAMINATION: GENERAL: This is a reasonably well-appearing gentleman in no acute distress. SKIN: Unremarkable. SKELETAL: Well-developed, well-nourished, nonobese. HEENT: Extraocular movements are full. Vision intact. No scleral icterus. Hearing intact. Mucous membranes moist. NECK: Supple, no JVD and no lymphadenopathy. CHEST: Shows occasional crackles bilaterally. HEART: Regular. ABDOMEN: Soft and nontender. EXTREMITIES: Show no edema. [address] [address] CONSULTATION Name: NICKIE MESA Room #: 417-I [facility] IN M.R.#: [id number] Admission: 09/20/17 Attend Phys: Yovani Fenton MD Discharge: 09/25/17 Date of : 29 Report #: [id number] NEUROLOGIC: Grossly intact. LABORATORY DATA: Hemoglobin is 8.2, platelets 106. Sodium 137, potassium 5, chloride 105, bicarbonate 21, BUN 120, creatinine 5. ASSESSMENT AND PLAN: 1. Acute on chronic kidney disease. He may be a little bit volume depleted. I will hold his torsemide give him some gentle IV fluids. 2. Pneumonia. He appears to have patchy pneumonitis, could be viral. Antibiotics have been administered and that seems to be appropriate. 3. Chronic anemia, on Procrit. We will continue that. 4. Status post nephrectomy for remote renal cell cancer. 5. History of hypertension. 6. Coronary artery disease, status post coronary artery bypass graft. <ELECTRONICALLY SIGNED> By: Bahman Ceballos MD 09/25/17 1213 1141 2349 Bahman Ceballos MD /nt
--- NOTE | ~2017-09-20 | EKG ---
[address] [address] ELECTROCARDIOGRAM REPORT Name: NICKIE MESA Room #: 170-1 ADM IN M.R.#: [id number] Admission: 09/20/17 Attend Phys: Yovani Fenton MD Discharge: Date of : 29 Report #: [id number] THIS REPORT FOR: //name// [facility] ED Test Date: 2017-09-20 Test Time: 07:12:33 Pat Name: NICKIE MESA Department: Room: 170 Gender: M Ad Setter: [facility] : 1930 Requested By: Bg Bonilla Order Number: [id number] MD: Carl Tim Measurements Intervals [place] Rate: 55 P: 47 CO: 181 QRS: 20 QRSD: 112 T: 50 QT: 461 QTc: 441 Interpretive Statements Sinus bradycardia Borderline intraventricular conduction delay Compared to ECG 06/19/2017 16:35:31 No significant changes Electronically Signed On 09-20-2017 9:11:55 QUALITY REVIEWER by Carl Tim [email or web address] <ELECTRONICALLY SIGNED> By: Carl Tim MD, [facility] 09/20/17910 1 1 Carl Tim MD, [facility] /EPI
--- NOTE | ~2017-09-20 | 2DMMODE ---
[facility] [address] [place] [address] 2 D/M-MODE ECHOCARDIOGRAM Name: BONITANICKIEBRUNILDA SANDERS Room #: 417-I ADM IN ..#: [id number] Admission: 09/20/17 Attend Phys: Yovani Fenton, Discharge: Date of : 29 Date of Service: 09/20/17 1215 Report #: [id number] THIS REPORT FOR: //name// APPROVED REPORT Study performed: 09/20/2017 12:07:08 EXAM: Comprehensive 2D, Doppler, and color-flow Echocardiogram Patient Location: Bedside Room #: [facility] Status: routine BSA: 1.86 HR: 53 bpm BP: 163/40 mmHg Other Information Study Quality: Good Indications Congestive Heart Failure Diabetes Dyspnea CAD Hypertension/HDD 2D Dimensions RVDd: 33.19 mm LVEF(%): 66.25 (>50%) IVSd: 10.46 (7-11mm) LVOT Diam: 18.66 (18-24mm) LVDd: 51.02 mm PWd: 9.02 (7-11mm) Ascending Ao: 34.64 (22-36mm) LVDs: 32.28 (25-40mm) Aortic Root: 32.55 mm IVC: 24.00 mm Shane's LVEF: 66.25 % Volumes Left Atrial Volume (Systole) Single Plane 4CH: 93.32 mL Single Plane 2CH: 50.51 mL LA ESV Index: 43.00 mL/m2 Aortic Valve AoV Peak Khalif.: 2.56 m/s AO Peak Gr.: 26.22 mmHg LVOT Max P.74 mmHg AO Mean Gr.: 12.75 mmHg LVOT Mean P.53 mmHg AO V2 Mean: 1.65 m/s LVOT Max V: 1.09 m/s AO V2 VTI: 71.50 cm LVOT Mean V: 0.75 m/s [facility] [place] [address] 2 D/M-MODE ECHOCARDIOGRAM Name: NICKIE MESA Room #: 417-I ADM IN .R.#: [id number] Admission: 09/20/17 Attend Phys: Yovani Fenton, Discharge: Date of : 29 Date of Service: 09/20/17 1215 Report #: [id number] ROBIN (VTI): 1.26 cm2 LVOT V1 VTI: 33.02 cm ROBIN Vmax: 1.16 cm2 SV (LVOT): 90.28 mL Mitral Valve E/A Ratio: 1.2 MV Decel. Time: 224.03 ms MV E Max Khalif.: 1.49 m/s MV A Khalif.: 1.26 m/s MV PHT: 64.97 ms IVRT: 96.89 ms Pulmonary Valve PV Peak Khalif.: 1.05 m/s PV Peak Gr.: 4.37 mmHg Pulmonary Vein P Vein S: 0.74 m/s P Vein A: 0.17 m/s P Vein D: 0.68 m/s P Vein A Dur.: 101.5 msec P Vein S/D Ratio: 1.09 Tricuspid Valve TR Peak Khalif.: 3.35 m/s TR Peak Gr.: 44.95 mmHg PA Pressure: 55.00 mmHg Left Ventricle The left ventricle is normal size. There is normal LV segmental wall motion. There is normal left ventricular wall thickness. Left ventricular systolic function is hyperdynamic. LVEF is 65-70%. The left ventricular diastolic function is normal. Right Ventricle The right ventricle is normal size. The right ventricular systolic function is normal. Atria Left atrium is dilated. Right atrium is at the upper limits of normal. Aortic Valve The aortic valve is normal in structure. Aortic valve is calcified. No aortic regurgitation is present. Mild to moderate aortic stenosis. Mitral Valve The mitral valve is normal in structure. [place] [address] 2 D/M-MODE ECHOCARDIOGRAM Name: DASHAWNTRINANICKIEBRUNILDA SANDERS Room #: 417-I ADM IN M.R.#: [id number] Admission: 09/20/17 Attend Phys: Yovani Fenton, Discharge: Date of : 29 Date of Service: 09/20/17 1215 Report #: [id number] regurgitation. No evidence of mitral valve stenosis. Tricuspid Valve The tricuspid valve is normal in structure. There is mild tricuspid regurgitation. Estimated PAP 55 mmHg. There is moderate pulmonary hypertension. Pulmonic Valve The pulmonary valve is normal in structure. There is no pulmonic valvular regurgitation. Great Vessels The aortic root is normal in size. IVC is dilated and collapses >50% with inspiration. Pericardium There is no pericardial effusion. <Conclusion> The left ventricle is normal size. LVEF is 65-70%. Left atrium is dilated. Right atrium is at the upper limits of normal. The aortic valve is normal in structure. Aortic valve is calcified. Mild to moderate aortic stenosis. No aortic regurgitation is present. The mitral valve is normal in structure. Mild to moderate mitral regurgitation. The tricuspid valve is normal in structure. There is mild tricuspid regurgitation. Estimated PAP 55 mmHg. There is moderate pulmonary hypertension. The pulmonary valve is normal in structure. There is no pericardial effusion. <ELECTRONICALLY SIGNED> By: Reggie Reese MD 09/20/175 14 14 Reggie Reese MD /INF
[2017-09-20 06:52] VITALS: BP 171/43
[2017-09-20 07:17] LABS: ABSOLUTE NEUTROPHILS 3.8 thou/uL (1.4-8.2); BASOPHILS 0.8 % (0.0-2.0); EOSINOPHILS 2.6 % (0.0-3.0); HEMATOCRIT 24.8 % (42.0-52.0); HEMOGLOBIN 8.2 gm/dL (14.0-18.0); LYMPHOCYTES 18.3 % (24.0-44.0); MCH 27.3 pg (26.0-34.0); MCHC 33.2 g/dL (28.0-37.0); MCV 82.3 fL (80.0-100.0); MONOCYTES 9.9 % (1.0-8.0); PLATELET COUNT 106 thou/uL (150-400); POLYS 68.4 % (36.0-66.0); RBC 3.01 mil/uL (4.50-6.00); RDW 16.6 % (10.5-14.5); WBC 5.6 thou/uL (4.0-11.0)
[2017-09-20] MEDS ORDERED: NEURONTIN 300300 M1 PO (07:20)
[2017-09-20] MEDS ORDERED: DEMADEX20 MG PO (07:23)
[2017-09-20 07:24] LABS: ANION GAP 11 mmol/L (7-16); BUN 120 mg/dL (7-18); CHLORIDE 105 mmol/L (98-107); CO2 21 mmol/L (21-32); GLUCOSE 147 mg/dL (74-106); SODIUM 137 mmol/L (136-145)
[2017-09-20 07:33] LABS: TROPONIN-I < 0.04 ng/mL (<0.06)
[2017-09-20 08:10] VITALS: BP 164/51
[2017-09-20 09:23] VITALS: BP 159/39
[2017-09-20 09:38] VITALS: BP 163/40
[2017-09-20 16:30] VITALS: BP 166/68
[2017-09-20 19:59] VITALS: BP 159/48
[2017-09-21 04:21] LABS: ALBUMIN 2.7 g/dL (3.4-5.0); CALCIUM 7.6 mg/dL (8.5-10.1); CREATININE 4.7 mg/dL (0.7-1.3); PHOSPHORUS 6.1 mg/dL (2.5-4.9); POTASSIUM 4.8 mmol/L (3.5-5.1)
[2017-09-21 04:25] VITALS: BP 161/45
[2017-09-21 07:02] VITALS: BP 163/50
[2017-09-21 16:16] VITALS: BP 168/55
[2017-09-21 19:25] VITALS: BP 178/50
[2017-09-22 03:30] VITALS: BP 171/65
[2017-09-22 03:40] LABS: HEMATOCRIT 24.7 % (42.0-52.0); HEMOGLOBIN 7.9 gm/dL (14.0-18.0); MCH 26.6 pg (26.0-34.0); MCV 83.1 fL (80.0-100.0); PLATELET COUNT 98 thou/uL (150-400); RBC 2.98 mil/uL (4.50-6.00); RDW 16.6 % (10.5-14.5); WBC 5.6 thou/uL (4.0-11.0)
[2017-09-22 03:50] LABS: ALBUMIN 2.9 g/dL (3.4-5.0); CALCIUM 7.9 mg/dL (8.5-10.1); CREATININE 4.7 mg/dL (0.7-1.3); PHOSPHORUS 5.6 mg/dL (2.5-4.9); POTASSIUM 5.1 mmol/L (3.5-5.1)
[2017-09-22 05:19] LABS: ANISOCYTOSIS SLIGHT
[2017-09-22 08:33] VITALS: BP 159/46
[2017-09-22 16:01] VITALS: BP 169/52
[2017-09-22 19:07] VITALS: BP 167/63
[2017-09-22 23:53] VITALS: BP 164/46
[2017-09-23 04:58] LABS: ALBUMIN 3.1 g/dL (3.4-5.0); CALCIUM 8.1 mg/dL (8.5-10.1); CREATININE 4.8 mg/dL (0.7-1.3); PHOSPHORUS 5.9 mg/dL (2.5-4.9)
[2017-09-23 05:04] VITALS: BP 189/57
[2017-09-23 07:15] VITALS: BP 181/72
[2017-09-23 15:00] VITALS: BP 180/73
[2017-09-23 19:03] VITALS: BP 180/55
[2017-09-24 03:46] VITALS: BP 160/50
[2017-09-24 06:48] LABS: HEMATOCRIT 24.2 % (42.0-52.0); MCH 27.1 pg (26.0-34.0); MCHC 32.9 g/dL (28.0-37.0); MCV 82.4 fL (80.0-100.0); RBC 2.93 mil/uL (4.50-6.00); WBC 6.3 thou/uL (4.0-11.0)
[2017-09-24 07:05] LABS: CALCIUM 7.6 mg/dL (8.5-10.1); CREATININE 4.5 mg/dL (0.7-1.3); POTASSIUM 5.3 mmol/L (3.5-5.1)
[2017-09-24 09:36] VITALS: BP 174/56
[2017-09-24 16:00] VITALS: BP 170/52
[2017-09-24 18:59] VITALS: BP 186/57
[2017-09-24 23:06] LABS: ADENOVIRUS Negative (Negative); INFLUENZA A Negative (Negative); INFLUENZA B Negative (Negative); METAPNEUMOVIRUS Negative (Negative); PARAINFLUENZA 1 Negative (Negative); PARAINFLUENZA 2 Negative (Negative); PARAINFLUENZA 3 Negative (Negative); RHINOVIRUS Negative (Negative); RSV A Negative (Negative); RSV B Negative (Negative)
[2017-09-25 03:23] VITALS: BP 173/50
[2017-09-25 06:31] LABS: ALBUMIN 2.7 g/dL (3.4-5.0); CALCIUM 7.6 mg/dL (8.5-10.1); CREATININE 4.3 mg/dL (0.7-1.3); PHOSPHORUS 6.8 mg/dL (2.5-4.9); POTASSIUM 5.3 mmol/L (3.5-5.1)
[2017-09-25 07:33] VITALS: BP 172/57
[2017-09-25] MEDS ORDERED: CEFDINIR300 MG PO (07:40)
[2017-09-25] MEDS ORDERED: FLOMAX0.4 MG PO (07:41)
[2017-09-25] MEDS ORDERED: PREDNISONE 20 M20 M1 PO (07:42)
[2017-09-25] MEDS ORDERED: MAGNESIUM400 MG PO (07:42)
== END 2017-09-25 11:10 | DRG 682 ==
LOC: ER 06:52 → 4E 08:16 → EROBS 08:16 → 4E 09:24
PROVIDERS: Emergency Medicine; Family Medicine; Hospitalist; Internal Medicine Endocrinology, Diabetes & Metabolism; Internal Medicine Nephrology; Internal Medicine Pulmonary Disease
DX: N17.9 Acute kidney failure, unspecified (principal); J18.9 Pneumonia, unspecified organism; J44.0 Chronic obstructive pulmonary disease with (acute) lower respiratory infection; I13.0 Hypertensive heart and chronic kidney disease with heart failure and stage 1 through stage 4 chronic kidney disease, or unspecified chronic kidney disease; I50.30 Unspecified diastolic (congestive) heart failure; I25.10 Atherosclerotic heart disease of native coronary artery without angina pectoris; E11.22 Type 2 diabetes mellitus with diabetic chronic kidney disease; I27.20 Pulmonary hypertension, unspecified; N18.4 Chronic kidney disease, stage 4 (severe); E11.40 Type 2 diabetes mellitus with diabetic neuropathy, unspecified; D63.8 Anemia in other chronic diseases classified elsewhere; R33.9 Retention of urine, unspecified; Z90.49 Acquired absence of other specified parts of digestive tract; Z79.899 Other long term (current) drug therapy; Z79.82 Long term (current) use of aspirin; Z95.1 Presence of aortocoronary bypass graft; Z88.1 Allergy status to other antibiotic agents; Z88.8 Allergy status to other drugs, medicaments and biological substances; Z87.891 Personal history of nicotine dependence; Z85.528 Personal history of other malignant neoplasm of kidney; Z90.5 Acquired absence of kidney
CPT/HCPCS: 10183

== ENCOUNTER 2017-10-04 16:45 | Inpatient (IN) | payer OTHER, MEDICARE ==
[~2017-10-04] VITALS: Ht 165.1 cm; Wt 83.7 kg
--- NOTE | ~2017-10-04 | EKG ---
[address] [address] ELECTROCARDIOGRAM REPORT Name: BONITANICKIE MARILYN Room #: 428-P ADM IN M.R.#: [id number] Admission: 10/04/17 Attend Phys: Artie Christiansen MD Discharge: Date of : 29 Report #: [id number] THIS REPORT FOR: //name// [facility] ED Test Date: 2017-10-04 Test Time: 18:55:44 Pat Name: NICKIE MESA Department: Room: 428 Gender: M Visitor Services Representative: NIKOLAS : 1930 Requested By: Holger Wray Order Number: [id number] MD: Mendoza Ferrari Measurements Intervals [place] Rate: 49 P: 41 TN: 204 QRS: 20 QRSD: 127 T: 70 QT: 502 QTc: 454 Interpretive Statements Sinus bradycardia Baseline wander in lead(s) I,III,aVL,V3 Compared to ECG 09/20/2017 07:12:33 Electronically Signed On 10-04-2017 22:34:21 MACHINE TAILER by Mendoza Ferrari [email or web address] <ELECTRONICALLY SIGNED> By: Mendoza Ferrari MD 10/04/17 2234 54 Mendoza Ferrari MD /EPI
[~2017-10-04 16:45] MED LIST changes: +FLOMAX0.4 MG PO; +MAGNESIUM400 MG PO; +NEURONTIN 300300 M1 PO; +PREDNISONE 20 M20 M1 PO
[2017-10-04 17:00] VITALS: BP 133/48
[2017-10-04 19:14] LABS: ABSOLUTE NEUTROPHILS 8.3 thou/uL (1.4-8.2); BASOPHILS 0.2 % (0.0-2.0); HEMATOCRIT 22.5 % (42.0-52.0); HEMOGLOBIN 7.1 gm/dL (14.0-18.0); LYMPHOCYTES 4.1 % (24.0-44.0); MCH 26.3 pg (26.0-34.0); MCHC 31.6 g/dL (28.0-37.0); MCV 83.3 fL (80.0-100.0); MONOCYTES 1.4 % (1.0-8.0); POLYS 94.3 % (36.0-66.0); RBC 2.71 mil/uL (4.50-6.00); RDW 16.4 % (10.5-14.5); WBC 8.8 thou/uL (4.0-11.0)
[2017-10-04 19:15] LABS: PLATELET COUNT 78 thou/uL (150-400)
[2017-10-04 19:24] LABS: ANION GAP 11 mmol/L (7-16); BUN 149 mg/dL (7-18); CHLORIDE 105 mmol/L (98-107); CO2 14 mmol/L (21-32); CREATININE 4.6 mg/dL (0.7-1.3); GLUCOSE 317 mg/dL (74-106); SODIUM 130 mmol/L (136-145)
[2017-10-04 19:34] LABS: APTT 29.1 Seconds (24.5-32.8); D-DIMER 0.82 ug/mLFEU (0.19-0.50); INR 1.1; PROTIME 11.5 Seconds (9.3-11.4)
[2017-10-04 19:40] LABS: MAGNESIUM 4.3 mg/dL (1.8-2.4); SGOT 14 U/L (15-37); SGPT 26 U/L (30-65); TOTAL BILIRUBIN 0.4 mg/dL (<0.1-1.0); TOTAL PROTEIN 4.8 g/dL (6.4-8.2)
[2017-10-04 19:41] LABS: ALBUMIN 2.6 g/dL (3.4-5.0); TROPONIN-I < 0.04 ng/mL (<0.06)
[2017-10-04 22:38] VITALS: BP 136/43
[2017-10-04 22:53] VITALS: BP 136/54
[2017-10-05 03:16] VITALS: BP 135/45
[2017-10-05 06:00] LABS: RDW 16.5 % (10.5-14.5); WBC 7.6 thou/uL (4.0-11.0)
[2017-10-05 06:01] LABS: MCH 26.6 pg (26.0-34.0); MCHC 32.1 g/dL (28.0-37.0); MCV 82.8 fL (80.0-100.0); RBC 2.42 mil/uL (4.50-6.00)
[2017-10-05 06:07] LABS: HEMOGLOBIN 6.4 gm/dL (14.0-18.0)
[2017-10-05 06:11] LABS: ALBUMIN 2.3 g/dL (3.4-5.0); CALCIUM 7.1 mg/dL (8.5-10.1); CREATININE 4.5 mg/dL (0.7-1.3); PHOSPHORUS 7.2 mg/dL (2.5-4.9)
[2017-10-05 06:15] LABS: POTASSIUM 6.4 mmol/L (3.5-5.1)
[2017-10-05 07:50] VITALS: BP 133/61
[2017-10-05 15:05] VITALS: BP 122/47
[2017-10-05 20:30] VITALS: BP 139/53
[2017-10-06 04:30] VITALS: BP 132/49
[2017-10-06 06:22] LABS: ABSOLUTE NEUTROPHILS 5.2 thou/uL (1.4-8.2); EOSINOPHILS 0.6 % (0.0-3.0); HEMOGLOBIN 6.6 gm/dL (14.0-18.0); PLATELET COUNT 64 thou/uL (150-400)
[2017-10-06 06:25] LABS: HEMATOCRIT 20.6 % (42.0-52.0); LYMPHOCYTES 11.3 % (24.0-44.0); MCH 26.6 pg (26.0-34.0); MCHC 32.1 g/dL (28.0-37.0); MCV 82.7 fL (80.0-100.0); MONOCYTES 6.4 % (1.0-8.0); POLYS 81.7 % (36.0-66.0); RBC 2.49 mil/uL (4.50-6.00); RDW 16.7 % (10.5-14.5); WBC 6.3 thou/uL (4.0-11.0)
[2017-10-06 06:36] LABS: ALBUMIN 2.3 g/dL (3.4-5.0); CALCIUM 6.9 mg/dL (8.5-10.1); CREATININE 4.5 mg/dL (0.7-1.3); PHOSPHORUS 7.4 mg/dL (2.5-4.9); POTASSIUM 5.8 mmol/L (3.5-5.1)
[2017-10-06 08:00] VITALS: BP 138/52
[2017-10-06 09:03] LABS: OBSERVED RETIC COUNT 2.71 % (0.6-2.6)
[2017-10-06 09:06] LABS: % SATURATION 8 % (20-39); IRON 17 ug/dL (65-175); TIBC 210 ug/dL (250-450)
[2017-10-06 16:00] VITALS: BP 150/43
[2017-10-06 20:29] VITALS: BP 162/52
[2017-10-07 04:27] VITALS: BP 159/48
[2017-10-07 07:23] LABS: ABSOLUTE NEUTROPHILS 4.7 thou/uL (1.4-8.2); EOSINOPHILS 0.5 % (0.0-3.0); LYMPHOCYTES 11.8 % (24.0-44.0); MCH 26.4 pg (26.0-34.0); MCHC 32.1 g/dL (28.0-37.0); MCV 82.4 fL (80.0-100.0); MONOCYTES 8.1 % (1.0-8.0); POLYS 79.6 % (36.0-66.0); RBC 2.41 mil/uL (4.50-6.00); RDW 16.9 % (10.5-14.5); WBC 5.9 thou/uL (4.0-11.0)
[2017-10-07 07:29] LABS: HEMATOCRIT 19.9 % (42.0-52.0); HEMOGLOBIN 6.4 gm/dL (14.0-18.0)
[2017-10-07 07:45] LABS: ALBUMIN 2.2 g/dL (3.4-5.0); CREATININE 4.8 mg/dL (0.7-1.3); PHOSPHORUS 6.9 mg/dL (2.5-4.9)
[2017-10-07 07:50] VITALS: BP 162/56
[2017-10-07 07:52] LABS: POTASSIUM 6.2 mmol/L (3.5-5.1)
[2017-10-07 10:21] LABS: PLATELET COUNT 56 thou/uL (150-400); PLATELET ESTIMATE DECREASED
[2017-10-07 20:14] VITALS: BP 155/54
[2017-10-08 06:18] LABS: ALBUMIN 2.2 g/dL (3.4-5.0); CALCIUM 6.9 mg/dL (8.5-10.1); CREATININE 4.6 mg/dL (0.7-1.3); POTASSIUM 5.4 mmol/L (3.5-5.1)
[2017-10-08] MEDS ORDERED: PREDNISONE 10 M10 MG PO (07:23)
[2017-10-08] MEDS ORDERED: GABAPENTIN 100100 MG PO (07:23)
[2017-10-08] MEDS ORDERED: CEFDINIR300 MG PO (07:26)
[2017-10-08 08:00] VITALS: BP 160/49
[2017-10-08 17:00] VITALS: BP 175/60
[2017-10-08 20:00] VITALS: BP 194/62
[2017-10-09 04:45] VITALS: BP 178/54
[2017-10-09 07:10] VITALS: BP 183/63
== END 2017-10-09 11:21 | DRG 682 ==
LOC: ER 16:45 → EROBS 20:02 → 4E 20:02
PROVIDERS: Emergency Medicine; Family Medicine; Hospitalist; Nurse Practitioner Family
DX: N17.9 Acute kidney failure, unspecified (principal); E43 Unspecified severe protein-calorie malnutrition; J98.11 Atelectasis; E87.5 Hyperkalemia; E11.22 Type 2 diabetes mellitus with diabetic chronic kidney disease; N18.9 Chronic kidney disease, unspecified; I12.9 Hypertensive chronic kidney disease with stage 1 through stage 4 chronic kidney disease, or unspecified chronic kidney disease; N40.1 Benign prostatic hyperplasia with lower urinary tract symptoms; D63.1 Anemia in chronic kidney disease; R33.8 Other retention of urine; I27.20 Pulmonary hypertension, unspecified; G25.0 Essential tremor; I25.10 Atherosclerotic heart disease of native coronary artery without angina pectoris; E78.5 Hyperlipidemia, unspecified; E03.9 Hypothyroidism, unspecified; E11.65 Type 2 diabetes mellitus with hyperglycemia; E83.41 Hypermagnesemia; Z79.4 Long term (current) use of insulin; Z87.891 Personal history of nicotine dependence; Z85.528 Personal history of other malignant neoplasm of kidney; Z90.5 Acquired absence of kidney; Z95.1 Presence of aortocoronary bypass graft; Z87.01 Personal history of pneumonia (recurrent); Z79.52 Long term (current) use of systemic steroids; Z79.82 Long term (current) use of aspirin; Z79.899 Other long term (current) drug therapy; Z88.1 Allergy status to other antibiotic agents; Z88.2 Allergy status to sulfonamides; Z88.8 Allergy status to other drugs, medicaments and biological substances
CPT/HCPCS: 10183

== ENCOUNTER 2017-10-18 13:01 | Inpatient (IN) | payer OTHER, MEDICARE ==
[~2017-10-18] VITALS: Ht 165.1 cm; Wt 68.6 kg
--- NOTE | ~2017-10-18 | HC ---
[facility] [place] [address] CONSULTATION Name: NICKIE MESA Room #: 247-P ADM IN M.R.#: [id number] Admission: 10/18/17 Attend Phys: Yovani Fenton MD Discharge: Date of : 29 Report #: [id number] THIS REPORT FOR: //name// CC: Yovani Fenton DATE OF SERVICE: 10/18/2017 REASON FOR CONSULTATION: Chronic kidney disease and severe anemia. HISTORY OF PRESENT ILLNESS: The patient is extremely well known to our service, followed in our office for many years with slowly progressive CKD, stage 4/5, now progressing to stage 5. He has had multiple recent admissions with pneumonia, weakness, hyperkalemia, renal failure and anemia. He has been trying to rehab at [facility], became progressively weak in his hemoglobin which was 6.4 two weeks ago fell to 4.8 and he was admitted for blood transfusion, further care and to initiate chronic hemodialysis in all likelihood. PAST MEDICAL HISTORY: He has had coronary artery bypass. He has had a nephrectomy for renal cell cancer, partial colectomy for, I believe, diverticulosis. He has had longstanding diabetes, chronic essential tremor, difficult hypertension, urinary retention and most recently has had an indwelling Alicia catheter. He was seen by Urology, I do not believe any attempts have been made to get his catheter out; this was placed earlier this month here at this hospital. HOME MEDICATIONS: Include tapering prednisone, antibiotics, propranolol, aspirin. He had been on torsemide, I do not see that on his current outpatient list of medications. Flomax, he has been on even though he has got the indwelling Alicia. Amlodipine 2.5 mg daily, levothyroxine 25 mcg daily, Cardura 4 mg daily, magnesium, propranolol 40 mg daily, gabapentin. FAMILY HISTORY: Positive for cancer. SOCIAL HISTORY: He has not been a smoker. He is . REVIEW OF SYSTEMS: GENERAL: He has been weak and feeling poorly. EYES: His vision has been reasonably good. ENT: His hearing is poor. He has got hearing aids. No mouth sores or ulcers. ENDOCRINE: Positive for the diabetes and thyroid disease. RESPIRATORY: Somewhat easily short-winded. CARDIAC: No recent chest pain. He has been swelling in his legs. GASTROINTESTINAL: No nausea, vomiting or diarrhea. GENITOURINARY: He has got the indwelling Alicia. NEUROLOGIC: Just the weakness. [facility] [address] [place] [address] CONSULTATION Name: NICKIE MESA Room #: 247-P [facility] IN .R.#: [id number] Admission: 10/18/17 Attend Phys: Yovani Fenton MD Discharge: Date of : 29 Report #: [id number] MUSCULOSKELETAL: No arthritis. PHYSICAL EXAMINATION: VITAL SIGNS: This is an ill-appearing gentleman. He is in no acute distress. He is pale. SKIN: Otherwise, unremarkable. SKELETAL: Shows him to be well developed, well nourished, nonobese. HEENT: Extraocular movements are full. Vision is intact. Hearing is poor. Mucous membranes are moist. NECK: Supple. Neck veins are slightly distended. CHEST: Shows diminished breath sounds at the bases. HEART: Regular, but distant. ABDOMEN: Soft and nontender. EXTREMITIES: Show 2+ peripheral edema. LABORATORY DATA: His hemoglobin was 4.8, platelets at only 35,000. He has had thrombocytopenia in the past. Sodium 133, potassium 6.6, chloride 107, bicarbonate 20, creatinine 4.5, BUN 120, glucose 210. ASSESSMENT AND PLAN: 1. Chronic kidney disease. His creatinine is worsening. It looks like he will have to start some dialysis. I am a little unclear as to why the platelets are so low; if that has anything to do with his anemia, if this is some sort of a bone marrow issue or problem. We will consult Hematology as well. He may need to get platelets before he can get a dialysis catheter. 2. Hyperkalemia. We will treat this medically. 3. Severe anemia. He likely has some gastrointestinal blood loss. He also has some dilutional aspect with his fluid overload. 4. Hypertension. We will need to follow that and watch and see about medications. 5. History of previous coronary artery bypass surgery. 6. History of renal cell cancer and nephrectomy. 7. History of partial colectomy. 8. Diabetes mellitus. <ELECTRONICALLY SIGNED> By: Bahman Ceballos MD 10/28/17 1119 1717 0514 Bahman Ceballos MD /nt
--- NOTE | ~2017-10-18 | HC ---
[facility] [place] [address] CONSULTATION Name: NICKIE MESA Room #: 247-P [facility] IN M.R.#: [id number] Admission: 10/18/17 Attend Phys: Yovani Fenton MD Discharge: Date of : 28 Report #: [id number] THIS REPORT FOR: //name// CC: Yovani Fenton DATE OF SERVICE: 10/20/2017 REQUESTING PHYSICIAN: Dr. Fenton. REASON FOR CONSULTATION: Thrombocytopenia and anemia. HISTORY OF PRESENT ILLNESS: The patient is an 87-year-old gentleman who was admitted to the hospital for profound anemia, black tarry stools, melena and iqogk-ol-crgbdln kidney disease. He was given transfusions of packed red blood cells. He was found to have thrombocytopenia as. Dialysis was initiated. Hematology consult was requested. Because he is evaluated in the Intensive Care Unit, he was intubated last night, so he cannot give me any history, but reviewing the chart, it seems that he does not have Hematology physician. He has chronic thrombocytopenia, no leukopenia and has had chronic anemia. He is currently intubated, undergoing dialysis. He continues to have melena. He had a CT scan of head, which did not demonstrate intracranial bleeding. PAST MEDICAL HISTORY: Significant for diabetes mellitus, chronic kidney disease, previous history of GI bleeding, hypothyroidism, hyperlipidemia and CAD. FAMILY HISTORY: Cannot obtain. SOCIAL HISTORY: Nonsmoker. Alcohol abuse, none. REVIEW OF SYSTEMS: Unable to obtain. PHYSICAL EXAMINATION: GENERAL: Reveals an old gentleman, intubated, unresponsive. VITAL SIGNS: Blood pressure 80/42, he is on Levophed. Heart rate is 59, temperature 96.4. HEENT EXAMINATION: Intubated. HEART: S1, S2. LUNGS: Coarse. ABDOMEN: Soft. EXTREMITIES: No edema. LYMPHATIC: There is no cervical or supraclavicular lymphadenopathy. LABORATORY DATA: White count 5.7, hemoglobin 9.0, MCV 83.6, platelets 33,000, segs 73% and bands 10%. Sodium 140, potassium 4.3, BUN 61 and creatinine is 2.4. LDH 195. Total bilirubin 0.3. Folate 2.3. Vitamin B12 of 842. CT scan [facility] [address] [place] [address] CONSULTATION Name: NICKIE MESA MARILYN Room #: [facility]-P ADM IN M.R.#: [id number] Admission: 10/18/17 Attend Phys: Yovani Fenton MD Discharge: Date of : 29 Report #: [id number] head, no intracranial process. ASSESSMENT AND PLAN: 1. Anemia, multifactorial, secondary to gastrointestinal bleeding. Folate deficiency is identified as well. I am planning to give IV folic acid 400 mcg IV push daily. Agree with transfusions. 2. Thrombocytopenia. The patient has a history of chronic thrombocytopenia, now it is worsened because of folate deficiency, gastrointestinal bleeding, probably medications are playing a role. Because the patient is currently bleeding, has melena, I recommend to transfuse one unit of single donor platelets. Thank you very much for allowing me to participate in the care of this patient. <ELECTRONICALLY SIGNED> By: Mitzi Latham MD 10/28/17 1606 1120 [id number] Mitzi Latham MD /nt
--- NOTE | ~2017-10-18 | HC ---
[facility] [place] [address] CONSULTATION Name: NICKIE MESA Room #: 249-P ADM IN M.R.#: [id number] Admission: 10/18/17 Attend Phys: Yovani Fenton MD Discharge: Date of : 29 Report #: [id number] THIS REPORT FOR: //name// CC: Yovani Fenton DATE OF SERVICE: 10/20/2017 INFECTIOUS DISEASE CONSULTATION ATTENDING PHYSICIAN: Dr. Fenton REASON FOR EVALUATION: Gram-negative septicemia. HISTORY OF PRESENT ILLNESS: Chart reviewed, patient examined. This is an 87-year-old man with known chronic renal failure who has been progressively getting weaker over the last days to weeks and found to have hemoglobin of 5 on the day prior to admission. This was attributed to gastrointestinal hemorrhage. He did receive 4 units of packed cells. Since admission, he had progressive encephalopathy, increasing dyspnea. It became apparent that he is going to fail protecting his airway. He was intubated and transitioned to the Intensive Care Unit. He does make urine, although apparently this has been less so over recent 24-48 hours. He has got a positive blood culture with gram-negative omega as well. Urine culture was collected and is in progress. It is notable his creatinine is in 4 to 5 range. He was given a dose of ceftriaxone. At this point, he is not responsive. He is on continuous dialysis for 8 hours as well as mechanical ventilatory support. He is receiving norepinephrine. ALLERGIES: LISTED TO DILTIAZEM AND BACTRIM. CURRENT MEDICATIONS: Include ceftriaxone, folic acid, norepinephrine and pantoprazole. PAST MEDICAL HISTORY: Does have known coronary artery disease with previous aortocoronary bypass grafting, previous colon resection. 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 SOCIAL HISTORY: Nonsmoker and no ethanol. FAMILY HISTORY: Noncontributory. REVIEW OF SYSTEMS: Not obtainable. PHYSICAL EXAMINATION: GENERAL: He appears chronically ill. He is lying supine. He has multiple [facility] [address] [place] [address] CONSULTATION Name: NICKIE MESA Room #: 249-P [facility] IN M.R.#: [id number] Admission: 10/18/17 Attend Phys: Yovani Fenton MD Discharge: Date of : 29 Report #: [id number] HEENT: Otherwise unremarkable. LUNGS: Scattered coarse breath sounds. HEART: Regular and distant. ABDOMEN: Soft. There are no overt peritoneal signs. GENITOURINARY AND RECTAL: Deferred. LABORATORY: Blood cultures 1 out of 2 with gram-negative omega. PT 14.3 and INR 1.4. Total bili 1.4. LFTs otherwise unremarkable. Albumin of 1.5 with the total protein of 3.7. Ammonia 13. ABGs: pH of 7.429, pCO2 of 34.2 and pO2 of 82.8. This is post intubation, on 50% FiO2. Chest x-ray: Perihilar and infrahilar pulmonary opacities, perhaps more suggestive of edema versus multifocal pneumonia or aspiration. CBC: White count of 5.7. ____ 9.0. This was post 4 units transfusion. Platelet count of 33. Initial CBC: White count of 4.2, hemoglobin 4.8, hematocrit 15.2 and platelets of 35. Ferritin of 99. ASSESSMENT: Gram-negative septicemia. I suspect genitourinary tract source. He receives ceftriaxone. It is not clear whether he has had a significant amount of antibiotic exposure at this point. There is a concern about resistant gram negatives as well including extended-spectrum beta-lactamase. We will go ahead and dose with quinolone. We likely avoid aminoglycoside in this setting. Also we need to be mindful of the fact that the kidneys are not likely to recover in any meaningful way. ____ to follow. <ELECTRONICALLY SIGNED> By: Jason Hinkle MD 10/21/17 0806 [id number] [id number] Jason Hinkle MD /nt
--- NOTE | ~2017-10-18 | EKG ---
[address] [address] ELECTROCARDIOGRAM REPORT Name: BONITANICKIE MARILYN Room #: 249-P ADM IN M.R.#: [id number] Admission: 10/18/17 Attend Phys: Yovani Fenton MD Discharge: Date of : 29 Report #: [id number] THIS REPORT FOR: //name// [facility] Test Date: 2017-10-18 Test Time: 17:07:10 Pat Name: NICKIE MESA Department: Room: 249 Gender: M [employer]: [place] : 1930 Requested By: Bahman Ceballos Order Number: [id number] MD: Mendoza Ferrari Measurements Intervals [place] Rate: 43 P: NV: QRS: 29 QRSD: 125 T: 36 QT: 509 QTc: 431 Interpretive Statements Sinus bradcycardia Baseline wander in lead(s) V1 Compared to ECG 10/04/2017 18:55:44 Electronically Signed On 10-19-2017 9:08:44 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
[~2017-10-18 13:01] MED LIST changes: +PREDNISONE 10 M10 MG PO
[2017-10-18 16:29] LABS: MCH 26.3 pg (26.0-34.0); MCV 82.8 fL (80.0-100.0); WBC 4.2 thou/uL (4.0-11.0)
[2017-10-18 16:30] LABS: MCHC 31.8 g/dL (28.0-37.0); RBC 1.83 mil/uL (4.50-6.00); RDW 16.6 % (10.5-14.5)
[2017-10-18 16:33] LABS: HEMATOCRIT 15.2 % (42.0-52.0); HEMOGLOBIN 4.8 gm/dL (14.0-18.0)
[2017-10-18 16:44] LABS: % SATURATION 5 % (20-39); IRON 10 ug/dL (65-175); TIBC 195 ug/dL (250-450)
[2017-10-18 16:47] LABS: CALCIUM 7.2 mg/dL (8.5-10.1); CREATININE 4.5 mg/dL (0.7-1.3); TOTAL BILIRUBIN 0.3 mg/dL (<0.1-1.0); TOTAL PROTEIN 4.2 g/dL (6.4-8.2)
[2017-10-18 16:49] LABS: POTASSIUM 6.6 mmol/L (3.5-5.1)
[2017-10-18 19:21] VITALS: BP 109/46; BP 128/53
[2017-10-18 22:57] LABS: CALCIUM 7.3 mg/dL (8.5-10.1); CREATININE 4.6 mg/dL (0.7-1.3)
[2017-10-18 23:02] LABS: HEMATOCRIT 19.2 % (42.0-52.0); HEMOGLOBIN 6.2 gm/dL (14.0-18.0); POTASSIUM 6.2 mmol/L (3.5-5.1)
[2017-10-19] VITALS (103 sets, daily range): BP systolic 76–152; BP diastolic 33–101
[2017-10-19 03:01] LABS: MCHC 32.8 g/dL (28.0-37.0); RBC 2.16 mil/uL (4.50-6.00); RDW 16.8 % (10.5-14.5)
[2017-10-19 03:03] LABS: MCH 27.4 pg (26.0-34.0); MCV 83.5 fL (80.0-100.0)
[2017-10-19 03:08] LABS: ALBUMIN 2.1 g/dL (3.4-5.0); CALCIUM 7.1 mg/dL (8.5-10.1); CREATININE 4.8 mg/dL (0.7-1.3); PHOSPHORUS 5.6 mg/dL (2.5-4.9)
[2017-10-19 04:03] LABS: HEMATOCRIT 18.1 % (42.0-52.0); HEMOGLOBIN 5.9 gm/dL (14.0-18.0)
[2017-10-19 04:04] LABS: POTASSIUM 6.3 mmol/L (3.5-5.1)
[2017-10-19 11:16] LABS: HEMATOCRIT 19.5 % (42.0-52.0)
[2017-10-19 11:17] LABS: HEMOGLOBIN 6.5 gm/dL (14.0-18.0)
[2017-10-19 14:56] LABS: HEMATOCRIT 23.1 % (42.0-52.0); HEMOGLOBIN 7.7 gm/dL (14.0-18.0)
[2017-10-19 17:15] LABS: BE(vivo) 4.2 mmol/L (-2 to +3); HCO3 27.1 mmol/L (22.0-26.0); PCO2 33.3 mmHg (35.0-45.0); PO2 62.6 mmHg (80.0-100.0); pH 7.528 (7.360-7.450); sO2 94.4 % (92.0-98.0)
[2017-10-19 22:13] LABS: HEMATOCRIT 24.5 % (42.0-52.0); HEMOGLOBIN 8.4 gm/dL (14.0-18.0)
[2017-10-20] VITALS (95 sets, daily range): BP systolic 80–108; BP diastolic 33–48
[2017-10-20 04:46] LABS: HEMATOCRIT 26.4 % (42.0-52.0); MCH 28.4 pg (26.0-34.0); MCV 83.6 fL (80.0-100.0); RBC 3.16 mil/uL (4.50-6.00); RDW 16.3 % (10.5-14.5); WBC 5.7 thou/uL (4.0-11.0)
[2017-10-20 04:59] LABS: ALBUMIN 1.6 g/dL (3.4-5.0); CALCIUM 6.8 mg/dL (8.5-10.1); PHOSPHORUS 4.8 mg/dL (2.5-4.9); POTASSIUM 4.3 mmol/L (3.5-5.1)
[2017-10-20 05:01] LABS: CREATININE 3.4 mg/dL (0.7-1.3)
[2017-10-20 05:32] LABS: FOLIC ACID 2.3 ng/mL (8.6-58.9)
[2017-10-20 05:50] LABS: ABSOLUTE NEUTROPHILS 4.7 thou/uL (1.4-8.2); ANISOCYTOSIS 1+; ATYPICAL LYMPHS 1 %; NUCLEATED RBCS 2 /100WBC; PLATELET COUNT 33 thou/uL (150-400)
[2017-10-20 05:51] LABS: LARGE PLATELETS RARE
[2017-10-20 09:33] LABS: BE(vivo) -1.9 mmol/L (-2 to +3); PCO2 33.8 mmHg (35.0-45.0); PO2 70.2 mmHg (80.0-100.0); pH 7.431 (7.360-7.450); sO2 94.7 % (92.0-98.0)
[2017-10-20 11:06] LABS: BE(vivo) -1.8 mmol/L (-2 to +3); HCO3 22.1 mmol/L (22.0-26.0); PCO2 34.2 mmHg (35.0-45.0); PO2 82.8 mmHg (80.0-100.0); pH 7.429 (7.360-7.450); sO2 96.5 % (92.0-98.0)
[2017-10-20 11:48] LABS: ALBUMIN 1.5 g/dL (3.4-5.0); APTT 36.2 Seconds (24.5-32.8); DIRECT BILIRUBIN 0.5 mg/dL (<0.1-0.3); INR 1.4; PROTIME 14.3 Seconds (9.3-11.4); TOTAL BILIRUBIN 1.4 mg/dL (<0.1-1.0); TOTAL PROTEIN 3.7 g/dL (6.4-8.2)
[2017-10-21] VITALS (105 sets, daily range): BP systolic 78–135; BP diastolic 31–100
[2017-10-21 04:13] LABS: CALCIUM 6.8 mg/dL (8.5-10.1); MAGNESIUM 2.4 mg/dL (1.8-2.4); PHOSPHORUS 3.2 mg/dL (2.5-4.9); POTASSIUM 4.5 mmol/L (3.5-5.1)
[2017-10-21 04:18] LABS: CREATININE 2.1 mg/dL (0.7-1.3)
[2017-10-21 05:18] LABS: BE(vivo) 2.1 mmol/L (-2 to +3); PCO2 37.7 mmHg (35.0-45.0); PO2 99.2 mmHg (80.0-100.0); pH 7.457 (7.360-7.450); sO2 97.8 % (92.0-98.0)
[2017-10-21 06:48] LABS: HEMATOCRIT 26.7 % (42.0-52.0); MCH 28.2 pg (26.0-34.0)
[2017-10-21 06:49] LABS: MCHC 33.5 g/dL (28.0-37.0); MCV 83.9 fL (80.0-100.0); RBC 3.18 mil/uL (4.50-6.00); RDW 16.6 % (10.5-14.5)
[2017-10-21 15:09] LABS: URINE BILIRUBIN 1+ (Negative); URINE BLOOD 3+ (Negative); URINE COLOR YELLOW; URINE GLUCOSE-RANDOM* NEGATIVE (Negative); URINE KETONES NEGATIVE (Negative); URINE LEUKOCYTES 2+ (Negative); URINE NITRITE POSITIVE (Negative); URINE PROTEIN (DIPSTICK) 2+ (Negative); URINE UROBILINOGEN 0.2 E.U./dl (0.2-1.0)
[2017-10-21 15:12] LABS: ICTOTEST (BILI CONFIRMATORY) Negative (Negative); URINE CLARITY CLOUDY
[2017-10-21 15:20] LABS: SQUAMOUS 0-3 Few /LPF (0-3)
[2017-10-21 15:21] LABS: CRYSTALS None Seen /LPF (None Seen); HYALINE CASTS 4-10 Moderate /LPF (None Seen); URINE RBC 0-2 Rare /HPF (0-2); URINE WBC >25 Many /HPF (0-5)
[2017-10-21 15:22] LABS: AMORPHOUS URATES Many /LPF (None Seen); FINE GRANULAR CASTS 0-3 Few /LPF (None Seen)
[2017-10-21 17:09] LABS: HEPATITIS B SURFACE AG Negative (Negative)
[2017-10-22] VITALS (79 sets, daily range): BP systolic 81–127; BP diastolic 37–87
[2017-10-22 06:54] LABS: ALBUMIN 1.5 g/dL (3.4-5.0); CALCIUM 7.1 mg/dL (8.5-10.1); CREATININE 1.8 mg/dL (0.7-1.3); POTASSIUM 3.7 mmol/L (3.5-5.1)
[2017-10-22 07:04] LABS: PHOSPHORUS 2.5 mg/dL (2.5-4.9)
[2017-10-22 08:01] LABS: HEMATOCRIT 24.6 % (42.0-52.0); HEMOGLOBIN 8.2 gm/dL (14.0-18.0); MCH 28.1 pg (26.0-34.0); MCHC 33.3 g/dL (28.0-37.0); MCV 84.4 fL (80.0-100.0); PLATELET COUNT 33 thou/uL (150-400); RBC 2.92 mil/uL (4.50-6.00); RDW 16.7 % (10.5-14.5); WBC 4.2 thou/uL (4.0-11.0)
[2017-10-22 09:06] LABS: ABSOLUTE NEUTROPHILS 3.7 thou/uL (1.4-8.2); PLATELET ESTIMATE DECREASED
[2017-10-22 09:07] LABS: ANISOCYTOSIS 1+
[2017-10-23] VITALS (68 sets, daily range): BP systolic 76–114; BP diastolic 33–49
[2017-10-23 04:36] LABS: ALBUMIN 1.4 g/dL (3.4-5.0); CALCIUM 7.1 mg/dL (8.5-10.1); PHOSPHORUS 3.9 mg/dL (2.5-4.9); POTASSIUM 3.8 mmol/L (3.5-5.1)
[2017-10-23 04:39] LABS: CREATININE 2.8 mg/dL (0.7-1.3)
[2017-10-23 08:20] LABS: HEMOGLOBIN 7.7 gm/dL (14.0-18.0); PLATELET COUNT 21 thou/uL (150-400); RBC 2.77 mil/uL (4.50-6.00)
[2017-10-23 08:22] LABS: HEMATOCRIT 23.4 % (42.0-52.0); MCHC 33.1 g/dL (28.0-37.0); MCV 84.4 fL (80.0-100.0); RDW 17.3 % (10.5-14.5); WBC 3.1 thou/uL (4.0-11.0)
[2017-10-23 09:05] LABS: ABSOLUTE NEUTROPHILS 2.3 thou/uL (1.4-8.2); ANISOCYTOSIS 1+; METAMYELOCYTES 3 %; MYELOCYTES 1 %; OVALOCYTES FEW
[2017-10-23 09:06] LABS: HYPOCHROMASIA 1+
[2017-10-24] VITALS (81 sets, daily range): BP systolic 74–124; BP diastolic 32–69
[2017-10-24 05:19] LABS: WBC 2.5 thou/uL (4.0-11.0)
[2017-10-24 05:21] LABS: HEMOGLOBIN 8.3 gm/dL (14.0-18.0); MCHC 33.2 g/dL (28.0-37.0); MCV 84.4 fL (80.0-100.0); RBC 2.97 mil/uL (4.50-6.00); RDW 16.7 % (10.5-14.5)
[2017-10-24 06:57] LABS: ALBUMIN 1.5 g/dL (3.4-5.0); CALCIUM 7.4 mg/dL (8.5-10.1); CREATININE 1.9 mg/dL (0.7-1.3); POTASSIUM 3.9 mmol/L (3.5-5.1)
[2017-10-24 07:45] LABS: ABSOLUTE NEUTROPHILS 1.8 thou/uL (1.4-8.2); ANISOCYTOSIS 1+; METAMYELOCYTES 2 %; MYELOCYTES 2 %
[2017-10-24 07:46] LABS: OVALOCYTES FEW
[2017-10-24 07:47] LABS: HYPOCHROMASIA 1+; NUCLEATED RBCS 1 /100WBC
[2017-10-24 07:48] LABS: PLATELET COUNT 27 thou/uL (150-400)
[2017-10-24 19:02] LABS: URINE BLOOD TRACE (Negative); URINE COLOR YELLOW; URINE GLUCOSE-RANDOM* NEGATIVE (Negative); URINE KETONES TRACE (Negative); URINE PROTEIN (DIPSTICK) 2+ (Negative); URINE SPECIFIC GRAVITY 1.025 (1.005-1.035)
[2017-10-24 19:05] LABS: URINE LEUKOCYTES-REFLEX TRACE (Negative); URINE NITRITE-REFLEX POSITIVE (Negative)
[2017-10-24 19:06] LABS: URINE BILIRUBIN NEGATIVE (Negative); URINE CLARITY SL HAZY
[2017-10-24 19:09] LABS: SQUAMOUS None Seen /LPF (0-3); URINE WBC-REFLEX 6-15 Few /HPF (0-5)
[2017-10-24 19:10] LABS: CASTS None Seen /LPF (None Seen); CRYSTALS None Seen /LPF (None Seen)
[2017-10-25] VITALS (62 sets, daily range): BP systolic 104–143; BP diastolic 38–114
[2017-10-25 05:27] LABS: RBC 2.88 mil/uL (4.50-6.00); RDW 17.1 % (10.5-14.5); WBC 3.2 thou/uL (4.0-11.0)
[2017-10-25 05:29] LABS: HEMATOCRIT 24.5 % (42.0-52.0); MCH 27.7 pg (26.0-34.0); MCHC 32.6 g/dL (28.0-37.0); MCV 84.8 fL (80.0-100.0)
[2017-10-25 05:35] LABS: ALBUMIN 1.3 g/dL (3.4-5.0); CALCIUM 7.2 mg/dL (8.5-10.1); CREATININE 1.8 mg/dL (0.7-1.3); PHOSPHORUS 2.8 mg/dL (2.5-4.9); POTASSIUM 3.8 mmol/L (3.5-5.1)
[2017-10-25 08:02] LABS: ABSOLUTE NEUTROPHILS 2.4 thou/uL (1.4-8.2)
[2017-10-25 08:04] LABS: ANISOCYTOSIS 1+; PLATELET COUNT 30 thou/uL (150-400)
[2017-10-25 16:46] LABS: BE(vivo) 9.1 mmol/L (-2 to +3); HCO3 33.6 mmol/L (22.0-26.0); PCO2 45.9 mmHg (35.0-45.0); PO2 115.8 mmHg (80.0-100.0); pH 7.482 (7.360-7.450); sO2 98.4 % (92.0-98.0)
[2017-10-26] VITALS (39 sets, daily range): BP systolic 106–139; BP diastolic 45–57
[2017-10-26 05:49] LABS: HEMATOCRIT 24.8 % (42.0-52.0); HEMOGLOBIN 8.1 gm/dL (14.0-18.0); MCH 27.5 pg (26.0-34.0); MCHC 32.5 g/dL (28.0-37.0); MCV 84.6 fL (80.0-100.0); PLATELET COUNT 25 thou/uL (150-400); RBC 2.94 mil/uL (4.50-6.00); RDW 17.2 % (10.5-14.5)
[2017-10-26 06:36] LABS: ABSOLUTE NEUTROPHILS 2.1 thou/uL (1.4-8.2); ANISOCYTOSIS 1+
[2017-10-26 07:18] LABS: CALCIUM 7.4 mg/dL (8.5-10.1); CREATININE 1.5 mg/dL (0.7-1.3); POTASSIUM 4.2 mmol/L (3.5-5.1)
[2017-10-27] VITALS (25 sets, daily range): BP systolic 92–141; BP diastolic 40–86
[2017-10-27 05:35] LABS: HCO3 29.5 mmol/L (22.0-26.0); PCO2 43.2 mmHg (35.0-45.0); PO2 78.1 mmHg (80.0-100.0); pH 7.452 (7.360-7.450)
[2017-10-27 06:19] LABS: HEMOGLOBIN 8.6 gm/dL (14.0-18.0); WBC 3.5 thou/uL (4.0-11.0)
[2017-10-27 06:21] LABS: MCH 27.9 pg (26.0-34.0); MCV 84.6 fL (80.0-100.0); RBC 3.07 mil/uL (4.50-6.00); RDW 17.1 % (10.5-14.5)
[2017-10-27 06:28] LABS: CALCIUM 7.3 mg/dL (8.5-10.1); CREATININE 1.5 mg/dL (0.7-1.3)
[2017-10-27 06:50] LABS: ABSOLUTE NEUTROPHILS 2.7 thou/uL (1.4-8.2); METAMYELOCYTES 4 %; PLATELET COUNT 36 thou/uL (150-400); PLATELET ESTIMATE DECREASED
[2017-10-27 09:58] LABS: BE(vivo) 5.6 mmol/L (-2 to +3); PCO2 43.7 mmHg (35.0-45.0); PO2 69.3 mmHg (80.0-100.0); pH 7.455 (7.360-7.450); sO2 94.6 % (92.0-98.0)
[2017-10-28] VITALS (26 sets, daily range): BP systolic 70–150; BP diastolic 37–108
[2017-10-28 05:31] LABS: HEMATOCRIT 26.2 % (42.0-52.0); HEMOGLOBIN 8.5 gm/dL (14.0-18.0); MCH 27.5 pg (26.0-34.0); MCHC 32.5 g/dL (28.0-37.0); MCV 84.5 fL (80.0-100.0); PLATELET COUNT 60 thou/uL (150-400); RBC 3.09 mil/uL (4.50-6.00); RDW 16.9 % (10.5-14.5)
[2017-10-28 05:40] LABS: ALBUMIN 1.4 g/dL (3.4-5.0); CALCIUM 7.3 mg/dL (8.5-10.1); PHOSPHORUS 2.9 mg/dL (2.5-4.9); POTASSIUM 4.5 mmol/L (3.5-5.1)
[2017-10-28 05:49] LABS: CREATININE 2.6 mg/dL (0.7-1.3)
[2017-10-28 06:04] LABS: ANISOCYTOSIS 1+; METAMYELOCYTES 1 %
[2017-10-28 06:05] LABS: LARGE PLATELETS OCCASIONAL; PLATELET ESTIMATE DECREASED; POLYCHROMASIA OCCASIONAL; TOXIC GRANULATION 1+
[2017-10-29] VITALS (20 sets, daily range): BP systolic 94–160; BP diastolic 55–134
[2017-10-29 04:45] LABS: HEMATOCRIT 25.7 % (42.0-52.0); HEMOGLOBIN 8.4 gm/dL (14.0-18.0); MCH 27.4 pg (26.0-34.0); MCHC 32.8 g/dL (28.0-37.0); MCV 83.4 fL (80.0-100.0); PLATELET COUNT 75 thou/uL (150-400); RBC 3.08 mil/uL (4.50-6.00); RDW 16.9 % (10.5-14.5); WBC 4.3 thou/uL (4.0-11.0)
[2017-10-29 05:06] LABS: ALBUMIN 1.5 g/dL (3.4-5.0); CALCIUM 7.6 mg/dL (8.5-10.1); CREATININE 2.1 mg/dL (0.7-1.3); POTASSIUM 4.3 mmol/L (3.5-5.1); TOTAL PROTEIN 4.5 g/dL (6.4-8.2)
[2017-10-29 05:36] LABS: BE(vivo) 3.1 mmol/L (-2 to +3); HCO3 27.9 mmol/L (22.0-26.0); PCO2 43.8 mmHg (35.0-45.0); PO2 66.5 mmHg (80.0-100.0); pH 7.422 (7.360-7.450); sO2 93.5 % (92.0-98.0)
[2017-10-29 07:41] LABS: ABSOLUTE NEUTROPHILS 3.3 thou/uL (1.4-8.2); METAMYELOCYTES 3 %
[2017-10-29 07:43] LABS: ANISOCYTOSIS 1+; MICROCYTES 1+; OVALOCYTES FEW
[2017-10-29 19:00] LABS: BE(vivo) 0.8 mmol/L (-2 to +3); PCO2 44.5 mmHg (35.0-45.0); PO2 123.3 mmHg (80.0-100.0); pH 7.384 (7.360-7.450); sO2 98.4 % (92.0-98.0)
[2017-10-30] VITALS (52 sets, daily range): BP systolic 52–132; BP diastolic 20–100
[2017-10-30 04:40] LABS: HCO3 26.5 mmol/L (22.0-26.0); PCO2 40.4 mmHg (35.0-45.0); PO2 120.5 mmHg (80.0-100.0); pH 7.434 (7.360-7.450); sO2 98.5 % (92.0-98.0)
[2017-10-30 04:55] LABS: ALBUMIN 1.3 g/dL (3.4-5.0); CALCIUM 7.3 mg/dL (8.5-10.1); CREATININE 2.7 mg/dL (0.7-1.3); PHOSPHORUS 3.9 mg/dL (2.5-4.9); POTASSIUM 3.9 mmol/L (3.5-5.1)
[2017-10-31] VITALS (44 sets, daily range): BP systolic 80–128; BP diastolic 38–84
[2017-10-31 05:07] LABS: HEMATOCRIT 20.4 % (42.0-52.0); HEMOGLOBIN 6.7 gm/dL (14.0-18.0); MCH 27.6 pg (26.0-34.0); MCV 83.6 fL (80.0-100.0); RBC 2.44 mil/uL (4.50-6.00); RDW 16.7 % (10.5-14.5); WBC 3.5 thou/uL (4.0-11.0)
[2017-10-31 05:17] LABS: ALBUMIN 1.2 g/dL (3.4-5.0); CREATININE 1.9 mg/dL (0.7-1.3); PHOSPHORUS 1.6 mg/dL (2.5-4.9); POTASSIUM 3.9 mmol/L (3.5-5.1)
[2017-11-01] VITALS (35 sets, daily range): BP systolic 77–149; BP diastolic 27–105
[2017-11-01 05:23] LABS: BE(vivo) 0.1 mmol/L (-2 to +3); HCO3 24.1 mmol/L (22.0-26.0); PCO2 36.3 mmHg (35.0-45.0); PO2 88.1 mmHg (80.0-100.0)
[2017-11-01 05:52] LABS: HEMATOCRIT 23.1 % (42.0-52.0); HEMOGLOBIN 7.6 gm/dL (14.0-18.0); MCV 84.8 fL (80.0-100.0); RBC 2.72 mil/uL (4.50-6.00)
[2017-11-01 06:06] LABS: ALBUMIN 1.2 g/dL (3.4-5.0); CREATININE 2.8 mg/dL (0.7-1.3); PHOSPHORUS 2.8 mg/dL (2.5-4.9); POTASSIUM 4.8 mmol/L (3.5-5.1)
== END 2017-11-01 14:55 | disposition hospice, inpatient (51) | DRG 870 ==
LOC: ICU 13:01 → 4E 13:01 → ICU 10-19 08:35
PROVIDERS: Family Medicine; Hospitalist; Internal Medicine Gastroenterology; Internal Medicine Hematology & Oncology; Internal Medicine Nephrology; Internal Medicine Pulmonary Disease; Nurse Practitioner; Specialist
PROC: B5181ZA Fluoroscopy of Superior Vena Cava using Low Osmolar Contrast, Guidance (ICD-10-PCS; principal; 2017-10-19)
PROC: 5A1D70Z Performance of Urinary Filtration, Intermittent, Less than 6 Hours Per Day (ICD-10-PCS; principal; 2017-10-19)
PROC: 30233N1 Transfusion of Nonautologous Red Blood Cells into Peripheral Vein, Percutaneous Approach (ICD-10-PCS; principal; 2017-10-19)
PROC: B548ZZA Ultrasonography of Superior Vena Cava, Guidance (ICD-10-PCS; principal; 2017-10-19)
PROC: 02HV33Z Insertion of Infusion Device into Superior Vena Cava, Percutaneous Approach (ICD-10-PCS; principal; 2017-10-19)
PROC: 30233R1 Transfusion of Nonautologous Platelets into Peripheral Vein, Percutaneous Approach (ICD-10-PCS; principal; 2017-10-19)
PROC: 5A1955Z Respiratory Ventilation, Greater than 96 Consecutive Hours (ICD-10-PCS; 2017-10-20)
PROC: 5A1D90Z Performance of Urinary Filtration, Continuous, Greater than 18 hours Per Day (ICD-10-PCS; 2017-10-20)
PROC: 0BH17EZ Insertion of Endotracheal Airway into Trachea, Via Natural or Artificial Opening (ICD-10-PCS; 2017-10-20)
PROC: 5A1D90Z Performance of Urinary Filtration, Continuous, Greater than 18 hours Per Day (ICD-10-PCS; 2017-10-21)
PROC: 5A1D90Z Performance of Urinary Filtration, Continuous, Greater than 18 hours Per Day (ICD-10-PCS; 2017-10-23)
PROC: 5A1D90Z Performance of Urinary Filtration, Continuous, Greater than 18 hours Per Day (ICD-10-PCS; 2017-10-24)
PROC: 5A1D70Z Performance of Urinary Filtration, Intermittent, Less than 6 Hours Per Day (ICD-10-PCS; 2017-10-25)
PROC: 5A1D70Z Performance of Urinary Filtration, Intermittent, Less than 6 Hours Per Day (ICD-10-PCS; 2017-10-26)
PROC: 5A1D90Z Performance of Urinary Filtration, Continuous, Greater than 18 hours Per Day (ICD-10-PCS; 2017-10-28)
PROC: B244YZZ Ultrasonography of Right Heart using Other Contrast (ICD-10-PCS; 2017-10-29)
PROC: B2141ZZ Fluoroscopy of Right Heart using Low Osmolar Contrast (ICD-10-PCS; 2017-10-29)
PROC: 02H633Z Insertion of Infusion Device into Right Atrium, Percutaneous Approach (ICD-10-PCS; 2017-10-29)
PROC: 5A1D70Z Performance of Urinary Filtration, Intermittent, Less than 6 Hours Per Day (ICD-10-PCS; 2017-10-29)
PROC: 5A1D70Z Performance of Urinary Filtration, Intermittent, Less than 6 Hours Per Day (ICD-10-PCS; 2017-10-30)
PROC: 5A1D90Z Performance of Urinary Filtration, Continuous, Greater than 18 hours Per Day (ICD-10-PCS; 2017-10-31)
DX: A41.52 Sepsis due to Pseudomonas (principal); R65.21 Severe sepsis with septic shock; J96.01 Acute respiratory failure with hypoxia; J69.0 Pneumonitis due to inhalation of food and vomit; G92 Toxic encephalopathy; K92.2 Gastrointestinal hemorrhage, unspecified; N17.9 Acute kidney failure, unspecified; N18.5 Chronic kidney disease, stage 5; E46 Unspecified protein-calorie malnutrition; D61.818 Other pancytopenia; N39.0 Urinary tract infection, site not specified; L03.116 Cellulitis of left lower limb; E87.0 Hyperosmolality and hypernatremia; I13.2 Hypertensive heart and chronic kidney disease with heart failure and with stage 5 chronic kidney disease, or end stage renal disease; E87.5 Hyperkalemia; E03.9 Hypothyroidism, unspecified; E78.5 Hyperlipidemia, unspecified; N40.0 Benign prostatic hyperplasia without lower urinary tract symptoms; I25.10 Atherosclerotic heart disease of native coronary artery without angina pectoris; D63.8 Anemia in other chronic diseases classified elsewhere; E11.22 Type 2 diabetes mellitus with diabetic chronic kidney disease; I50.9 Heart failure, unspecified; I95.9 Hypotension, unspecified; D50.9 Iron deficiency anemia, unspecified; I27.20 Pulmonary hypertension, unspecified; B96.5 Pseudomonas (aeruginosa) (mallei) (pseudomallei) as the cause of diseases classified elsewhere; Z95.1 Presence of aortocoronary bypass graft; Z90.5 Acquired absence of kidney; Z90.49 Acquired absence of other specified parts of digestive tract; Z80.42 Family history of malignant neoplasm of prostate; Z88.8 Allergy status to other drugs, medicaments and biological substances; Z88.2 Allergy status to sulfonamides; Z79.82 Long term (current) use of aspirin; Z79.899 Other long term (current) drug therapy; Z68.25 Body mass index [BMI] 25.0-25.9, adult; Z99.2 Dependence on renal dialysis
CPT/HCPCS: 10078; 10183; 32100; 32110